=== PATIENT | female | born 1935 | race Caucasian/White ===

== ENCOUNTER → 2016-10-03 | Outpatient (CLI) | payer MEDICARE ==
[2016-10-03 16:19] LABS: Blood Urea Nitrogen 15 mg/dL (7-17); Non-African American GFR(MDRD) >60 (>60 ml/min/1.73 sqM)
--- NOTE | 2016-10-03 17:51 | CT ---
History shoulder pain. Comparison none. TECHNIQUE: Multiple axial sections were obtained from the top of the shoulder to the proximal humerus with no co ntrast. FINDINGS: There is extensive metal artifact from the prosthesis on the articular surface of the humeral head. T he visualized glenoid appears intact. I see no definite fracture. Prosthesis appears in anatomic posi tion. The AC joint is intact. There is narrowing of the subacromial joint space. Detail is limited by the metal artifact. I see no focal bone destruction. Scapula appears intact. The visualized left upp er ribs appear intact. CONCLUSION: Left shoulder prosthesis. No sign of loosening. There is subacromial joint space narrowing consistent with rotator cuff tear. No fracture. Limited exam due to metal artifact.
== END | disposition home or self-care (01) ==
LOC: RADCTMAIN 15:42
PROVIDERS: ATTEND Orthopaedic Surgery
DX: M19.012 Primary osteoarthritis, left shoulder (principal); Z96.612 Presence of left artificial shoulder joint
CPT/HCPCS: 82565; 84520; 36415; 73202; Q9967

== ENCOUNTER → 2016-11-14 | Outpatient (CLI) | payer MEDICARE ==
[2016-11-14 10:54] LABS: EKG EKG PERFORMED
[2016-11-14 11:17] LABS: CH 29.4; CHCM 32.3; HCT 42.7 % (34.0-46.0); HDW 2.39; HGB 13.9 gm/dL (11.4-16.0); MCH 29.8 pg (25.0-35.0); MCHC 32.6 g/dL (31.0-37.0); MCV 91.4 fL (80.0-100.0); Mean Platelet Volume 6.5; RBC 4.67 m/uL (3.80-5.40); RDW 13.4 % (11.5-15.5)
[2016-11-14 11:37] LABS: ALT 34 U/L (9-52); AST 20 U/L (14-36); Alkaline Phosphatase 71 U/L (38-126); Anion Gap 11 mmol/L; Blood Urea Nitrogen 20 mg/dL (7-17); Carbon Dioxide 29 mmol/L (22-30); Chloride 103 mmol/L (98-107); Glucose 110 mg/dL (74-99); Non-African American GFR(MDRD) >60 (>60 ml/min/1.73 sqM); Potassium 4.3 mmol/L (3.5-5.1); Sodium 143 mmol/L (137-145); Total Bilirubin 0.6 mg/dL (0.2-1.3); Total Protein 6.8 g/dL (6.3-8.2)
== END ==
LOC: LABPAT 10:44
PROVIDERS: ATTEND Nurse Practitioner
DX: Z01.810 Encounter for preprocedural cardiovascular examination (principal); Z01.812 Encounter for preprocedural laboratory examination
CPT/HCPCS: 80053; 85027; 93005

== ENCOUNTER 2016-11-21 10:44 | Day surgery (SDC) | payer MEDICARE ==
[2016-11-16 11:06] VITALS: BMI 39.9
[~2016-11-21 10:44] MED LIST: CLINDAMYCIN 900 MG in DEXTROSE 5% IN WATER 50 ML IVPB ONE; DEXAMETHASONE SOD PHOSPHATE 10 MG/ML 1 ML VIAL IV ONE; HYDROmorphone 1 MG/ML 1 ML SYRINGE IVP PRN; LACTATED RINGERS 1,000 ML IV SCH; MIDAZOLAM 2 MG/2 ML VIAL IV PRN; ONDANSETRON 4 MG/2 ML VIAL IVP ONE
[2016-11-21] MEDS ORDERED: LIDOCAINE 1% 20 ML VIAL (10MG/ML) FOR IV START INTRADERMA ONE (11:15)
[2016-11-21] MEDS ORDERED: LIDOCAINE 2%-EPI 1:100,000 20 ML VIAL ONE (12:49)
[2016-11-21] MEDS ORDERED: SUCCINYLCHOLINE CHLORIDE 100 MG/5 ML SYR IV ONE (12:49)
[2016-11-21] MEDS ORDERED: fentaNYL (PF) 50 MCG/ML 2 ML AMP ONE (12:49)
[2016-11-21] MEDS ORDERED: MIDAZOLAM 2 MG/2 ML VIAL ONE (12:49)
[2016-11-21] MEDS ORDERED: LIDOCAINE 1% INJ 10MG/ML (20 ML MDV) ONE (12:49)
[2016-11-21] MEDS ORDERED: PROPOFOL 10 MG/ML 20 ML VIAL IV ONE (12:49)
[2016-11-21] MEDS ORDERED: ROPIVACAINE 5 MG/ML 30 ML VIAL ONE (12:49)
[2016-11-21] MEDS ORDERED: PHENYLEPHRINE-0.9% NACL SYG 1 MG/10 ML SYRINGE ONE (12:49)
[2016-11-21] MEDS ORDERED: CLINDAMYCIN 600 MG in SODIUM CHLORIDE 0.9% 1,000 ML IRRIGATION ONE (13:13)
[2016-11-21] MEDS ORDERED: SENNOSIDES-DOCUSATE SODIUM 1 EACH TAB PO PRN (14:24)
[2016-11-21] MEDS ORDERED: TEMAZEPAM 15 MG CAP PO PRN (14:24)
[2016-11-21] MEDS ORDERED: HYDROmorphone 1 MG/ML 1 ML SYRINGE IVP PRN ×3 (14:24)
[2016-11-21] MEDS ORDERED: HYDROcodone/APAP 5-325MG 1 EACH TAB PO PRN ×2 (14:24)
[2016-11-21] MEDS ORDERED: hydrOXYzine PAMOATE 25 MG CAP PO PRN (14:24)
[2016-11-21] MEDS ORDERED: ONDANSETRON 4 MG/2 ML VIAL IVP PRN (14:24)
[2016-11-21] MEDS: LACTATED RINGERS 1,000 ML IV SCH ×2 (18:16→21:57)
[2016-11-21] MEDS: CLINDAMYCIN 900 MG in DEXTROSE 5% IN WATER 50 ML IVPB SCH ×2 (20:26)
[2016-11-21] MEDS ORDERED: OXYBUTYNIN 10 MG TAB.ER.24 PO SCH (21:15)
[2016-11-21] MEDS ORDERED: PSYLLIUM HUSK 100% 6 GM PACKET PO SCH (21:15)
[2016-11-21] MEDS ORDERED: METOPROLOL SUCCINATE (ER) 50 MG TAB.ER.24H PO SCH (21:15)
[2016-11-21] MEDS ORDERED: MONTELUKAST 10 MG TAB PO SCH (21:15)
[2016-11-21] MEDS: VERAPAMIL SR 240 MG TABLET.ER PO SCH (21:53)
[2016-11-22] MEDS: CLINDAMYCIN 900 MG in DEXTROSE 5% IN WATER 50 ML IVPB SCH ×2 (04:14)
[2016-11-22] MEDS ORDERED: DICYCLOMINE 10 MG CAP PO SCH (09:00)
[2016-11-22] MEDS ORDERED: LISINOPRIL 20 MG TAB PO SCH (09:00)
[2016-11-22] MEDS: LACTATED RINGERS 1,000 ML IV SCH (09:05)
[2016-11-22] MEDS: VERAPAMIL SR 240 MG TABLET.ER PO SCH (09:05)
--- NOTE | 2016-11-22 09:10 | P.DS ---
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 The patient presented to the orthopedic office for evaluation. After discussion and consideration patient elects to proceed with a rotator cuff repair. The patient is seen preoperatively by her primary care physician and cleared for surgery. Patient is admitted to observation at [facility] on 11/21/2016 for left shoulder rotator cuff repair with distal clavicle excision and acromioplasty. The procedures performed without complication or sequelae. The patient is doing well postoperatively. Labs and vital signs are stable on day of discharge. On day of discharge patient's shoulder incision is healing well. There is minimal erythema. There is no drainage noted at this time. There is minimal soft tissue swelling to the right upper extremity. Patient has full hand, wrist , and elbow motion without difficulty or pain. Neurovascular status to the left upper extremity is intact. Patient is discharged to home in good condition. Patient Condition at Discharge: Stable Plan - Discharge Summary New Discharge Prescriptions: Clindamycin HCl [Cleocin] 300 mg PO Q8H #15 cap HYDROcodone/APAP 5-325MG [[place] 5] 1 - 2 each PO Q4-6H PRN #60 tab PRN Reason: Pain Sennosides-Docusate Sodium [Senokot-S] 2 tab PO DAILY #30 tablet Discharge Medication List Fluticasone Propionate 1 spray EA NOSTRIL DAILY 10/23/14 [History] Metoprolol Succinate [Toprol XL] 50 mg PO HS 10/23/14 [History] Montelukast [Singulair] 10 mg PO HS 10/23/14 [History] Oxybutynin Chloride [Ditropan XL] 10 mg PO HS 10/23/14 [History] Verapamil HCl [Calan] 240 mg PO BID 02/12/15 [History] Ascorbic Acid [Vitamin C] 500 mg PO DAILY 10/28/14 [History] Multivitamin/Iron/Folic Acid [Centrum Complete Multivit Tab] 1 each PO DAILY [History] Albuterol Nebulized [Ventolin Nebulized] 1 applicate INHALATION BID PRN [History] Biotin 10,000 mcg PO DAILY 11/16/16 [History] Calcium/Magnesium/Zinc [Xaejxkp-Rxxdklihh-Hapl Tablet] 1 each PO DAILY 11/16/16 [History] Cholecalciferol [Vitamin D3] 1,000 unit PO DAILY 11/16/16 [History] Dicyclomine [Bentyl] 10 mg PO DAILY 11/16/16 [History] Lisinopril [Zestril] 20 mg PO DAILY 11/16/16 [History] Psyllium Husk [Metamucil] 1 tbsp PO HS 11/16/16 [History] HYDROcodone/APAP 5-325MG [[place] 5] 1 - 2 each PO Q4-6H PRN #60 tab 11/21/16 [Rx] Clindamycin HCl [Cleocin] 300 mg PO Q8H #15 cap 11/22/16 [Rx] Sennosides-Docusate Sodium [Senokot-S] 2 tab PO DAILY #30 tablet 11/22/16 [Rx] Follow up Appointment(s)/Referral(s): Miki Hannah DO [Doctor of Osteopathic Medicine] - 2 Weeks Activity/Diet/Wound Care/Special Instructions: Keep incision clean and dry Change dressing daily May shower in 3 days if no drainage from incision Keep arm sling/abductor pillow in place except when bathing Follow up with Dr. Hannah in 2 weeks. Call [facility] with any questions or concerns. [phone] Discharge Disposition: HOME SELF-CARE
--- NOTE | 2016-11-22 10:27 | CONS ---
DATE OF CONSULTATION: 11/21/2016 REASON FOR CONSULTATION: Medical management, requested by Dr. Hannah. CONSULTATION: This is a pleasant 81-year-old patient with chronic stable medical conditions include asthma, GERD, hypertension, irritable bowel syndrome, urinary incontinence. The patient has undergone a left shoulder today, had a nerve block, fingers are numb. Post procedure, no nausea, vomiting. Did tolerate the procedure. Propped up in bed. REVIEW OF SYSTEMS: CONSTITUTIONAL: None. HEENT: None. RESPIRATORY: None. CARDIOVASCULAR: None. GASTROINTESTINAL: None. GENITOURINARY: None. MUSCULOSKELETAL: Aches and pain in the joints. DERMATOLOGICAL: None. HEMATOLOGIC: None. LYMPHATIC: None. PSYCHIATRY: None. NEUROLOGICAL: None. PAST MEDICAL HISTORY: Asthma, GERD, hypertension, osteoarthritis, irritable bowel syndrome, peptic ulcer disease, urinary incontinence. PAST SURGICAL HISTORY: Appendectomy, breast surgery, cardiac cath, hysterectomy, humerus resurfacing left shoulder, bilateral breast biopsies, repair of nasal fracture. SOCIAL HISTORY: The patient is a . No smoking. No alcohol. FAMILY HISTORY: Breast cancer. HOME MEDICATIONS: 1. Verapamil 240 mg b.i.d. 2. Metamucil 1 tbsp p.o. at bedtime. 3. Ditropan XL at bedtime. 4. Centrum complete 1 tablet p.o. daily. 5. Singulair 10 mg at bedtime. 6. Toprol-XL 50 mg at bedtime. 7. Zestril 20 mg p.o. daily. 8. Fluticasone 1 spray each nostril daily. 9. Bentyl 10 mg p.o. daily. 10. Vitamin D3 daily. 11. Calcium with zinc. 12. Magnesium daily. 13. Biotene 10,000 mcg daily. 14. Vitamin C 500 mg p.o. daily. 15. Ventolin topical b.i.d. p.r.n. 16. [place] 5, 2 tablets every 4 hours p.r.n. ALLERGIES: ( ), SULFUR, CODEINE, EGG, CARBOPENEM, PENICILLIN. On examination, temperature 96.7, pulse 96, respirations 18, blood pressure 1309/72, pulse ox 97% on 2 L. GENERAL APPEARANCE: Well built, BMI of 39.9, sitting up, comfortable. HEENT: Pupils normal. External appearance of oral cavity normal. NECK: Short, thick, JVD unable to assess. Mass not palpable. RESPIRATORY: Effort normal. Decreased breath sounds. CARDIOVASCULAR: First and second sounds normal. No edema. ABDOMEN: Soft. Liver and spleen not palpable. LYMPHATIC: No lymph nodes palpable in the neck, axillae or groin. PSYCHIATRY: Alert, oriented x3. EXTREMITIES: Left arm in a sling. Decreased sensation in the fingers. NEUROLOGIC: Pupils equal. No facial asymmetry. The rest is as above. INVESTIGATIONS: No blood work today. ASSESSMENT: 1. Left shoulder, rotator cuff surgery with acromioplasty, excision of distal clavicle. 2. Obesity; body mass index 39.9. 3. Mild intermittent asthma. 4. Gastroesophageal reflux disease. 5. Essential hypertension. 6. Primary osteoarthritis of multiple joints. 7. Irritable bowel syndrome. 8. Chronic urinary stress incontinence. PLAN: Home medications are resumed. DVT prophylaxis. Venodyne boots in place. Care was discussed with the patient. Thank you, Dr. Hannah.
[2016-11-22 14:12] VITALS: BP 146/73; PULSE 58; RESP 16; TEMP 97.6
--- NOTE | 2016-11-23 06:56 | PN ---
DATE OF SERVICE: 11/22/2016 PRESENTING COMPLAINT: Left shoulder surgery. INTERVAL HISTORY: Patient is status post left shoulder surgery. I saw this patient earlier today sitting in bed, feeling better and numbness in the left arm is greatly improved, tolerating a diet. Some pain is present. No chest pain or short of breath. Review of systems done for constitutional, cardiovascular, GI, pulmonary; relevant findings as above. Current medications are reviewed. On examination, temperature 97.6, pulse 58, respirations 16, blood pressure 146/73, pulse ox 97% on room air. GENERAL APPEARANCE: Sitting up, comfortable. EYES: Pupils equal. Conjunctivae normal. NECK: JVD not raised. Mass not palpable. RESPIRATORY: Effort normal. LUNGS: Slightly decreased breath sounds. CARDIOVASCULAR: First and second sounds normal. No edema. ABDOMEN: Soft, nontender. Liver and spleen not palpable. The left arm in a sling. Sensation back in the left hand. INVESTIGATIONS: No blood work from today. ASSESSMENT: 1. Left shoulder rotator cuff surgery with acromioplasty, excision of distal clavicle. 2. Obesity, body mass index 39.9. 3. Mild intermittent asthma. 4. Gastroesophageal reflux disease. 5. Essential hypertension. 6. Primary osteoarthritis of multiple joints. 7. Irritable bowel syndrome. 8. Chronic urinary stress incontinence. PLAN: Patient is stable. Continue current medication and treatment plan.
--- NOTE | 2016-11-29 19:44 | OP ---
DATE OF SERVICE: 11/21/2016 SURGEON: RUBY RIVAS DO SALESPERSON [employer]SE[employer] APPLIANCES:Annia Byrd NP PREOPERATIVE DIAGNOSIS: Chronic left rotator cuff impingement with partial tear. POSTOPERATIVE DIAGNOSIS: Chronic left rotator cuff impingement with partial tear. OPERATION: Resection of distal left clavicle, decompression acromioplasty and left rotator cuff repair. ANESTHESIA: ESTIMATED BLOOD LOSS: SPECIMENS REMOVED: COMPLICATIONS: OPERATIVE FINDINGS: DESCRIPTION OF PROCEDURE: The patient was taken to the operative suite and placed in supine position. General inhalation anesthesia was performed by the Department of Anesthesiology. The patient was placed in a beach chair position, padded and secured. Betadine prep was carried out over the left shoulder. Sterile drapes applied in the usual manner. Minimally invasive anterolateral incision was developed over the acromion. Sharp dissection through to the subcutaneous tissue was performed. The superior acromion ligament is identified and dissected. The distal 1 cm clavicle was excised. Anterior deltoid was released from anterolateral border. Coracoacromial ligament was released. The anterolateral decompression acromioplasty was performed with the bone rasp. Direct visualization of the rotator cuff tear was developed between the supraspinatus and infraspinatus tendons were noted. The repair was done with #1 Ethibond suture in a running fashion. The area is irrigated copiously. The deltoid was then reapproximated into the acromion with #1 Ethibond suture. The deep fascia is approximated with #1 Vicryl suture in a running fashion. Subcutaneous tissue approximated with 2-0 Vicryl suture in an interrupted fashion. Skin was approximated with 3-0 Quill suture in a running subcuticular fashion. Dermabond is used in sealing the wound. Sterile dressing was applied and the patient was placed in abductor pillow splint and transferred to the recovery room in satisfactory postop condition. GROSS PATHOLOGY: There is evidence of chronic rotator cuff impingement with a tear in the supraspinatus and infraspinatus tendon. [facility]
== END 2016-11-22 14:26 | disposition home or self-care (01) ==
LOC: OR 10:44 → 3SUR 14:20 → OR 11-22 14:26
PROVIDERS: ATTEND Orthopaedic Surgery
DX: M75.42 Impingement syndrome of left shoulder (principal); M75.112 Incomplete rotator cuff tear or rupture of left shoulder, not specified as traumatic; I10 Essential (primary) hypertension; J45.909 Unspecified asthma, uncomplicated; M19.90 Unspecified osteoarthritis, unspecified site; K58.9 Irritable bowel syndrome, unspecified; K30 Functional dyspepsia; N39.498 Other specified urinary incontinence; Z79.51 Long term (current) use of inhaled steroids; Z79.899 Other long term (current) drug therapy; Z88.2 Allergy status to sulfonamides; Z88.7 Allergy status to serum and vaccine; Z88.5 Allergy status to narcotic agent; Z88.0 Allergy status to penicillin; Z91.012 Allergy to eggs
CPT/HCPCS: 64415; 23415; J2250; J1100; J2405; J2001; J3010; J2795; J2370; J0330; J2704

== ENCOUNTER → 2017-03-24 | Outpatient (CLI) | payer MEDICARE ==
[2017-03-24 11:20] LABS: Basophils % (A) 1 %; CH 28.7; CHCM 33.1; Eosinophils # (A) 0.3 k/uL (0-0.7); Eosinophils % (A) 4 %; HCT 41.6 % (34.0-46.0); HDW 2.75; HGB 14.2 gm/dL (11.4-16.0); Luc # (Auto) 0.09; Luc % (Auto) 2; Lymphocytes % (A) 16 %; MCH 29.7 pg (25.0-35.0); MCHC 34.1 g/dL (31.0-37.0); MCV 87.1 fL (80.0-100.0); Mean Platelet Volume 6.8; Monocytes # (A) 0.4 k/uL (0-1.0); Monocytes % (A) 6 %; Neutrophils # (A) 4.6 k/uL (1.3-7.7); Neutrophils % (A) 72 %; RBC 4.78 m/uL (3.80-5.40); WBC 6.4 k/uL (3.8-10.6)
[2017-03-24 11:49] LABS: ALT 37 U/L (9-52); AST 26 U/L (14-36); Alkaline Phosphatase 96 U/L (38-126); Anion Gap 12 mmol/L; Blood Urea Nitrogen 15 mg/dL (7-17); Calcium 9.7 mg/dL (8.4-10.2); Carbon Dioxide 25 mmol/L (22-30); Chloride 107 mmol/L (98-107); Glucose 109 mg/dL (74-99); Non-African American GFR(MDRD) >60 (>60 ml/min/1.73 sqM); Potassium 4.7 mmol/L (3.5-5.1); Sodium 144 mmol/L (137-145); Total Bilirubin 0.7 mg/dL (0.2-1.3); Total Protein 6.9 g/dL (6.3-8.2)
[2017-03-24 11:52] LABS: Appearance,Urine Cloudy (Clear); Bacteria,Urine Occasional /hpf; Bilirubin,Urine Negative (Negative); Glucose,Urine (UA) Negative (Negative); Ketones,Urine Negative (Negative); Leukocyte Esterase,Urine Large (Negative); Mucus,Urine Few /hpf; Nitrite,Urine Negative (Negative); Particle Count 6051; Protein,Urine Trace (Negative); Specific Gravity,Urine 1.018 (1.001-1.035); Squamous Epithelial Cell,Urine 2 /hpf (0-4); UA Billing (MACRO vs. MICRO) MICRO; Urobilinogen,Urine <2.0 mg/dL (<2.0); WBC,Urine 57 /hpf (0-5)
== END | disposition home or self-care (01) ==
LOC: LABPAT 10:48
PROVIDERS: ATTEND Orthopaedic Surgery
DX: Z01.812 Encounter for preprocedural laboratory examination (principal); Z79.01 Long term (current) use of anticoagulants
CPT/HCPCS: 80053; 81001; 85025; 85610; 85730; 87070

== ENCOUNTER 2017-04-04 05:52 | Inpatient (IN) | payer MEDICARE ==
[2017-03-29 10:38] VITALS: BMI 38.2
[~2017-04-04 05:52] MED LIST changes: -DEXAMETHASONE SOD PHOSPHATE 10 MG/ML 1 ML VIAL IV ONE; +FAMOTIDINE 20 MG/2 ML VIAL IV PRN; -HYDROmorphone 1 MG/ML 1 ML SYRINGE IVP PRN; -LACTATED RINGERS 1,000 ML IV SCH; +LIDOCAINE 1% 20 ML VIAL (10MG/ML) FOR IV START INTRADERMA PRN; -MIDAZOLAM 2 MG/2 ML VIAL IV PRN; -ONDANSETRON 4 MG/2 ML VIAL IVP ONE; +ONDANSETRON 4 MG/2 ML VIAL IVP PRN; +TRANEXAMIC ACID 1,000 MG in SODIUM CHLORIDE 0.9% 100 ML IVPB ONE
[2017-04-04] MEDS: LACTATED RINGERS 1,000 ML IV SCH (06:21)
[2017-04-04 06:27] LABS: Appearance,Urine Clear (Clear); Bilirubin,Urine Negative (Negative); Glucose,Urine (UA) Negative (Negative); Ketones,Urine Negative (Negative); Leukocyte Esterase,Urine Small (Negative); Mucus,Urine Few /hpf; Nitrite,Urine Negative (Negative); PH, Urine 6.5 (5.0-8.0); Particle Count 2021; Protein,Urine Negative (Negative); RBC,Urine <1 /hpf (0-5); Specific Gravity,Urine 1.008 (1.001-1.035); Squamous Epithelial Cell,Urine <1 /hpf (0-4); UA Billing (MACRO vs. MICRO) MICRO; Urobilinogen,Urine <2.0 mg/dL (<2.0); WBC,Urine 10 /hpf (0-5)
[2017-04-04] MEDS ORDERED: TRANEXAMIC ACID 1,000 MG/10 ML VIAL ONE (07:03)
[2017-04-04] MEDS ORDERED: ePHEDrine 50 MG/ML 1 ML AMP ONE (07:03)
[2017-04-04] MEDS ORDERED: PROPOFOL 10 MG/ML 20 ML VIAL IV ONE (07:03)
[2017-04-04] MEDS ORDERED: SODIUM CHLORIDE 0.9% 100 ML BAG ONE (07:03)
[2017-04-04] MEDS ORDERED: fentaNYL (PF) 50 MCG/ML 2 ML AMP ONE (07:03)
[2017-04-04] MEDS ORDERED: MIDAZOLAM 2 MG/2 ML VIAL ONE (07:03)
[2017-04-04] MEDS ORDERED: CLINDAMYCIN 1,800 MG in SODIUM CHLORIDE 0.9% IRRIGATIO 3,000 ML IRRIGATION ONE (07:39)
[2017-04-04] MEDS ORDERED: LACTATED RINGERS 1,000 ML IV ONE ×3 (08:16→10:00)
[2017-04-04] MEDS ORDERED: DIAZEPAM 5 MG TAB PO PRN ×2 (08:53)
[2017-04-04] MEDS ORDERED: MAGNESIUM HYDROXIDE 2,400 MG/10 ML CUP PO PRN (08:53)
[2017-04-04] MEDS ORDERED: NALOXONE 0.4 MG/ML 1 ML VIAL IV PRN (08:53)
[2017-04-04] MEDS ORDERED: NA PHOS,M-B/NA PHOS,DI-BA 133 ML ENEMA RECTAL PRN (08:53)
[2017-04-04] MEDS ORDERED: ONDANSETRON 4 MG/2 ML VIAL IVP PRN (08:53)
[2017-04-04] MEDS ORDERED: HYDROmorphone 1 MG/ML 1 ML SYRINGE IVP PRN ×3 (08:53)
[2017-04-04] MEDS ORDERED: BISACODYL 10 MG SUPP RECTAL PRN (08:53)
[2017-04-04] MEDS ORDERED: hydrOXYzine PAMOATE 25 MG CAP PO PRN (08:53)
--- NOTE | 2017-04-04 09:48 | XR ---
EXAMINATION TYPE: XR knee limited RT DATE OF EXAM: 04/04/2017 CLINICAL HISTORY: Postoperative evaluation Two views of the right knee are submitted. Identified are changes of total knee arthroplasty with femoral and tibial components appearing well seated. Postsurgical soft tissue changes are noted. Alignment is anatomic.
[2017-04-04] MEDS: HYDROmorphone 1 MG/ML 1 ML SYRINGE IVP PRN ×2 (10:15→10:21)
--- NOTE | 2017-04-04 14:22 | P.CONS ---
History of Present Illness - Reason for Consult Consult date: 04/04/17 Medical management - Chief Complaint Right knee osteoarthritis - History of Present Illness This is a 81-year-old female with past medical history noted below significant for severe osteoarthritis of the right knee who was admitted to the hospital for elective total right knee arthroplasty. Patient is postoperative day #0. She tolerated the procedure well. She is complaining that her pain is not well controlled. I was asked to see her for medical management. I noted that the patient was bradycardic with a heart rate around 54. She denies any dizziness or lightheadedness. She is using both metoprolol succinate and verapamil at home. She said that she's been on this regimen for several years. She denies any knowledge of having problems with bradycardia. Review of Systems Review of system: 14 points review of systems were obtained and were negative except to what were mentioned in the HPI. Past Medical History Past Medical History: Asthma, GERD/Reflux, Hypertension, Osteoarthritis (OA) Additional Past Medical History / Comment(s): hx ulcer, IBS, leakage of urine, cold sores since hysterectomy, currently being tx. for UTI History of Any Multi-Drug Resistant Organisms: None Reported Past Surgical History: Breast Surgery, Heart Catheterization, Hysterectomy, Orthopedic Surgery Additional Past Surgical History / Comment(s): 10/28/14 Humeral head resurfacing L shoulder. bilateral breast biopsies, repair of nasal fx. Past Anesthesia/Blood Transfusion Reactions: No Reported Reaction Past Psychological History: No Psychological Hx Reported Additional Psychological History / Comment(s): Pt lives with in her own home. Pt is independent. She can still drive a car just not lately due to L shoulder problem. has dementia- he takes care of himself for the most part but is very forgetful. Pt uses no devices and uses no outside agency. Smoking Status: Never smoker Past Alcohol Use History: None Reported Past Drug Use History: None Reported - Past Family History Mother Family Medical History: Cancer Additional Family Medical History / Comment(s): breast Father Family Medical History: Congestive Heart Failure (CHF), Diabetes Mellitus, Vascular Disorder Additional Family Medical History / Comment(s): Blood clots in his legs. PVD Medications and Allergies Home Medications Medication Instructions Recorded Confirmed Type Fluticasone Propionate 1 spray EA NOSTRIL DAILY 10/23/14 04/04/17 History Metoprolol Succinate [Toprol XL] 50 mg PO HS 10/23/14 04/04/17 History Montelukast [Singulair] 10 mg PO HS 10/23/14 04/04/17 History Oxybutynin Chloride [Ditropan XL] 10 mg PO HS 10/23/14 04/04/17 History Verapamil HCl [Calan] 240 mg PO BID 10/23/14 04/04/17 History Ascorbic Acid [Vitamin C] 500 mg PO DAILY 10/28/14 04/04/17 History Multivitamin/Iron/Folic Acid 1 tab PO DAILY 10/28/14 04/04/17 History [Centrum Complete Multivit Tab] Biotin 10,000 mcg PO DAILY 11/16/16 04/04/17 History Calcium/Magnesium/Zinc 1 tab PO DAILY 11/16/16 04/04/17 History [Bhbsufl-Dvlplaxkb-Sfhl Tablet] Cholecalciferol [Vitamin D3] 1,000 unit PO DAILY 11/16/16 04/04/17 History Dicyclomine [Bentyl] 10 mg PO DAILY 11/16/16 04/04/17 History Lisinopril [Zestril] 20 mg PO DAILY 11/16/16 04/04/17 History Levofloxacin [Levaquin] 500 mg PO DAILY 03/31/17 04/04/17 History Psyllium Husk (with Sugar) 1 tbsp PO HS 04/04/17 04/04/17 History [Metamucil Powder] Allergies Allergy/AdvReac Type Severity Reaction Status Date / Time Influenza Virus Vaccines Allergy arm Verified 04/04/17 11:26 swelling Sulfa (Sulfonamide Allergy Unknown Verified 04/04/17 11:26 Antibiotics) Childhood codeine AdvReac Confusion, Verified 04/04/17 11:26 "out of it" gabapentin [From Neurontin] AdvReac Confusion, Verified 04/04/17 11:26 "out of it" Penicillins AdvReac Swelling Verified 04/04/17 11:26 Physical Exam Vitals: Vital Signs Temp Pulse Resp BP Pulse Ox 04/04/17 10:24 54 L 16 149/68 92 L 04/04/17 10:09 54 L 16 170/65 92 L 04/04/17 09:54 53 L 16 129/60 95 04/04/17 09:39 54 L 16 121/67 92 L 04/04/17 09:24 54 L 16 120/60 92 L 04/04/17 09:09 55 L 16 126/56 93 L 04/04/17 08:53 97.2 F L 62 16 117/58 94 L 04/04/17 06:20 97.9 F 63 16 188/90 97 Intake and Output 04/03/17 04/04/17 04/04/17 22:59 06:59 14:59 Intake Total 100 2056 Output Total 275 Balance 100 1781 Intake: IV 100 2056 Output: Urine 225 Estimated Blood Loss 50 General: The patient is awake and alert, in no distress Eye: there is normal conjunctiva bilaterally. Neck: The neck is supple, there is no JVD. Cardiovascular: Normal S1-S2, no S3-S4, no murmurs. Respiratory: Lungs clear to auscultation bilaterally Gastrointestinal: Abdomen is soft, nontender Musculoskeletal: There is no pedal edema. Neurological:. Speech is normal. Skin: Skin is warm and dry Results Labs: Abnormal Lab Results - Last 24 Hours (Table) 04/04/17 Range/Units 06:08 Ur Leukocyte Esterase Small H (Negative) Urine WBC 10 H (0-5) /hpf Urine Mucus Few H (None) /hpf Assessment and Plan Plan: 1. Sinus bradycardia, most likely attributed to the combination use of metoprolol succinate and verapamil. I advised to put the patient on telemetry monitoring. Hold metoprolol for now. Continue verapamil. We will adjust regimen as needed. 2. Postoperative day #0 status post total right knee arthroplasty 3. DVT prophylaxis per orthopedic protocol 4. Essential hypertension: Blood pressure well-controlled 5. Physical debility, awaiting PT/OT evaluation Today, I reviewed her medication list. Lab work ordered for the morning. Continue current regimen otherwise. Continue telemetry monitoring. I would follow up on her closely. Thank you very much for the consultation.
[2017-04-04] MEDS: CLINDAMYCIN 900 MG in DEXTROSE 5% IN WATER 50 ML IVPB SCH ×4 (14:42→17:50)
[2017-04-04] MEDS: HYDROcodone/APAP 5-325MG 1 EACH TAB PO PRN ×2 (14:44→15:17)
[2017-04-04] MEDS: SODIUM CHLORIDE 0.9% 1,000 ML IV SCH (14:47)
[2017-04-04] MEDS ORDERED: WARFARIN 2.5 MG TAB PO ONE (18:00)
[2017-04-04] MEDS: VERAPAMIL SR 240 MG TABLET.ER PO SCH (21:21)
[2017-04-04] MEDS: OXYBUTYNIN 10 MG TAB.ER.24 PO SCH (21:21)
[2017-04-04] MEDS: MONTELUKAST 10 MG TAB PO SCH (21:21)
[2017-04-04] MEDS: SENNOSIDES-DOCUSATE SODIUM 1 EACH TAB PO SCH (21:23)
[2017-04-05] MEDS: SODIUM CHLORIDE 0.9% 1,000 ML IV SCH ×2 (02:03→09:20)
[2017-04-05] MEDS: HYDROcodone/APAP 5-325MG 1 EACH TAB PO PRN ×4 (03:35→22:03)
[2017-04-05 08:07] LABS: Basophils % (A) 0 %; CH 29.7; CHCM 33.6; Eosinophils % (A) 0 %; HCT 39.6 % (34.0-46.0); HDW 2.61; HGB 13.1 gm/dL (11.4-16.0); Luc # (Auto) 0.14; Luc % (Auto) 1; Lymphocytes # (A) 0.8 k/uL (1.0-4.8); Lymphocytes % (A) 8 %; MCH 29.4 pg (25.0-35.0); MCHC 33.2 g/dL (31.0-37.0); MCV 88.6 fL (80.0-100.0); Mean Platelet Volume 7.4; Monocytes # (A) 0.9 k/uL (0-1.0); Monocytes % (A) 8 %; Neutrophils # (A) 8.7 k/uL (1.3-7.7); Neutrophils % (A) 82 %; RBC 4.47 m/uL (3.80-5.40); RDW 13.8 % (11.5-15.5); WBC 10.6 k/uL (3.8-10.6); WBC (Perox) 10.23
[2017-04-05 08:13] LABS: INR 1.4 (<1.2); Prothrombin Time 13.5 sec (9.0-12.0)
[2017-04-05 08:19] LABS: ALT 31 U/L (9-52); AST 21 U/L (14-36); Alkaline Phosphatase 83 U/L (38-126); Anion Gap 8 mmol/L; Blood Urea Nitrogen 9 mg/dL (7-17); Calcium 8.8 mg/dL (8.4-10.2); Carbon Dioxide 27 mmol/L (22-30); Chloride 100 mmol/L (98-107); Glucose 116 mg/dL (74-99); Magnesium 1.9 mg/dL (1.6-2.3); Non-African American GFR(MDRD) >60 (>60 ml/min/1.73 sqM); Potassium 3.7 mmol/L (3.5-5.1); Sodium 135 mmol/L (137-145); Total Bilirubin 0.8 mg/dL (0.2-1.3)
--- NOTE | 2017-04-05 08:28 | P.PN ---
Subjective Principal diagnosis: Status post right total knee arthroplasty This is a 81-year-old female who is status post right total knee arthroplasty. This is postoperative day #1. Patient states her pain is worse today than yesterday. Patient states she has been up out of bed once yesterday and transferred to a chair. Patient states it hurts to bear weight on the right lower extremity. Patient denies any numbness, weakness, tingling. Objective - Vital Signs Vital signs: Vital Signs Temp 100.1 F H 04/05/17 02:18 Pulse 76 04/05/17 02:18 Resp 17 04/05/17 02:18 BP 168/71 04/05/17 02:18 Pulse Ox 93 L 04/05/17 02:18 Intake & Output 04/04/17 04/05/17 04/05/17 18:59 06:59 18:59 Intake Total 3057 400 Output Total 1025 100 Balance 2031 300 Intake: IV 2157 400 Clindamycin 900 mg In 100 400 Dextrose 5% in Water 50 ml @ 100 mls/hr IVPB Q6H [facility] Rx#:[id number] Oral 900 Output: Urine 975 100 Uretheral (Morris) 750 Estimated Blood Loss 50 Other: Voiding Method Indwelling Catheter Indwelling Catheter - Exam Vital signs are stable. An elevated temperature noted which is most likely reactive, will follow patient closely. Patient is in no acute distress and is alert and oriented 3. Calf is soft and nontender. Incision is clean, dry, and intact. Neurovascular status intact. Patient has full foot and ankle motion. - Labs CBC & Chem 7: 04/05/17 07:45 Labs: Abnormal Lab Results - Last 24 Hours (Table) 04/05/17 04/05/17 Range/Units 07:45 07:45 Neutrophils # 8.7 H (1.3-7.7) k/uL Lymphocytes # 0.8 L (1.0-4.8) k/uL PT 13.5 H (9.0-12.0) sec INR 1.4 H (<1.2) Assessment and Plan (1) S/P total knee arthroplasty Status: Acute (2) Primary osteoarthritis of right knee Status: Acute Plan: #1 Continue with routine postoperative care. #2 Continue anticoagulation. #3 Physical therapy and CPM today. #4 Appreciated input from medicine. #5 Anticipate discharge to rehab on Monday .
[2017-04-05] MEDS: VERAPAMIL SR 240 MG TABLET.ER PO SCH ×2 (08:41→21:33)
[2017-04-05] MEDS: LISINOPRIL 20 MG TAB PO SCH (08:42)
[2017-04-05] MEDS: DICYCLOMINE 10 MG CAP PO SCH (08:42)
[2017-04-05] MEDS: LACTATED RINGERS 1,000 ML IV SCH (09:19)
--- NOTE | 2017-04-05 12:26 | XR ---
EXAMINATION TYPE: XR chest 2V DATE OF EXAM: 04/05/2017 COMPARISON: 09/02/2013 HISTORY: Shortness of breath TECHNIQUE: Frontal and lateral views of the chest are obtained. FINDINGS: Scattered senescent parenchymal changes noted. Hyperinflation compatible with COPD. No evidence for infiltrate. No evidence for atelectasis. Heart size is stable. Mediastinal structures are stable and grossly unremarkable. No evidence for hilar prominence. Degenerative changes dorsal spine. IMPRESSION: 1. No evidence for acute pulmonary disease.
--- NOTE | 2017-04-05 15:58 | P.PN ---
Subjective Patient is doing well today. Heart rate in the 60s and 70s. No events overnight. Objective - Vital Signs Vital signs: Vital Signs Temp 99.4 F 04/05/17 07:00 Pulse 68 04/05/17 07:00 Resp 18 04/05/17 07:00 BP 159/74 04/05/17 07:00 Pulse Ox 96 04/05/17 07:00 Intake & Output 04/04/17 04/05/17 04/05/17 18:59 06:59 18:59 Intake Total 3057 400 Output Total 1025 2400 Balance 2031 -1999 Intake: IV 2157 400 Clindamycin 900 mg In 100 400 Dextrose 5% in Water 50 ml @ 100 mls/hr IVPB Q6H [facility] Rx#:[id number] Oral 900 Output: Urine 975 2400 Uretheral (Morris) 750 2300 Estimated Blood Loss 50 Other: Voiding Method Indwelling Catheter Indwelling Catheter Indwelling Catheter - Exam General: The patient is awake and alert, in no distress Eye: there is normal conjunctiva bilaterally. Neck: The neck is supple, there is no JVD. Cardiovascular: Normal S1-S2, no S3-S4, no murmurs. Respiratory: Lungs clear to auscultation bilaterally Gastrointestinal: Abdomen is soft, nontender Musculoskeletal: There is no pedal edema. Neurological:. Speech is normal. Skin: Skin is warm and dry - Labs CBC & Chem 7: 04/05/17 07:45 04/05/17 07:45 Labs: Abnormal Lab Results - Last 24 Hours (Table) 04/05/17 04/05/17 04/05/17 Range/Units 07:45 07:45 07:45 Neutrophils # 8.7 H (1.3-7.7) k/uL Lymphocytes # 0.8 L (1.0-4.8) k/uL PT 13.5 H (9.0-12.0) sec INR 1.4 H (<1.2) Sodium 135 L (137-145) mmol/L Glucose 116 H (74-99) mg/dL Total Protein 6.0 L (6.3-8.2) g/dL Assessment and Plan Plan: 1. Sinus bradycardia, improved significantly after stopping metoprolol. most likely attributed to the combination use of metoprolol succinate and verapamil. I advised to discontinue metoprolol permanently there is no clear indication for beta blockers in this patient 2. Postoperative day #1 status post total right knee arthroplasty 3. DVT prophylaxis on Coumadin per orthopedic protocol 4. Essential hypertension: Blood pressure well-controlled 5. Physical debility, awaiting PT/OT evaluation Today, I reviewed her medication list. Lab work ordered for the morning. Continue current regimen otherwise. I would follow up on her closely.
[2017-04-05 17:02] VITALS: RESP 16
[2017-04-05] MEDS ORDERED: WARFARIN 7.5 MG TAB PO ONE (18:00)
--- NOTE | 2017-04-05 20:58 | OP ---
DATE OF PROCEDURE: 04/04/2017 SURGEON: Dr Miki Hannah DO FIRE PROTECTION DESIGNER: Maritza Camacho PA-C PREOPERATIVE DIAGNOSIS: Degenerative joint disease of the right knee. POSTOPERATIVE DIAGNOSIS: Degenerative joint disease of the right knee. PROCEDURE PERFORMED: Right total knee replacement arthroplasty utilizing [employer] Person[employer] Complete System. PROCEDURE: Patient was taken to the operative suite and placed in supine position. Spinal anesthesia had been performed by the department of anesthesiology. Betadine prep was carried out over the right knee from mid thigh to mid calf. The sterile drapes were applied in the usual manner. A medial parapatellar incision was developed. Medial retinaculum was incised. Patella was everted and dislocated laterally and held in a leg treadwell. The intramedullary cutting guide and jig was utilized for appropriate cuts in preparation for a size 8 femoral component. Provisionary component was impacted in position. Alignment and stability are noted. Excellent alignment of bone component interface was noted. A tibial cutting guide was brought into position and appropriate wafer cut developed. The menisci, both medial and lateral were excised. A size 4 trabecular metal plate was selected and 10 mm spacer was utilized in preparing for appropriate peg hole positions. The area was irrigated copiously. The tibial tray was marked for position, held and appropriate peg holes were drilled in preparation for tibial tray. The patella was shaped with a shelving planer in preparing for size 29 mm patella. All the trial components remained in good alignment and position. Pulsavac antibiotic solution was utilized in preparation for the final component. The final size 8 trabecular placed in position in pre-drilled holes and impacted. Final size 8 component was impacted in position. The final patellar components of the knee selected and placed in pre-drilled peg holes and impacted. The final polyethylene insert was inserted. The knee was placed in flexion position and the pneumatic tourniquet was deflated. The knee was irrigated with Pulsavac antibiotic solution. Superficial bleeding was controlled with electrocautery. The medial retinaculum was approximated with #3 Vicryl suture in horizontal mattress fashion. The patellar retinaculum in running fashion. Vicryl 2-0 suture was used to approximate subcutaneous suture. A 3-0 Vicryl and Quill suture was utilized for subcuticular closure. Dermabond was utilized in sealing the wound. Betadine and sterile pressure dressing was applied. The patient was returned to the recovery room in satisfactory postoperative condition. GROSS PATHOLOGY: Degenerative joint disease of the right knee medial compartment. NASIR
[2017-04-05] MEDS: SENNOSIDES-DOCUSATE SODIUM 1 EACH TAB PO SCH (21:29)
[2017-04-05] MEDS: OXYBUTYNIN 10 MG TAB.ER.24 PO SCH (21:33)
[2017-04-05] MEDS: MONTELUKAST 10 MG TAB PO SCH (21:33)
[2017-04-06] MEDS: LACTATED RINGERS 1,000 ML IV SCH (03:21)
[2017-04-06] MEDS: HYDROcodone/APAP 5-325MG 1 EACH TAB PO PRN ×2 (04:15→14:25)
[2017-04-06 07:51] LABS: ALT 34 U/L (9-52); AST 25 U/L (14-36); Alkaline Phosphatase 69 U/L (38-126); Anion Gap 7 mmol/L; Blood Urea Nitrogen 15 mg/dL (7-17); Calcium 8.7 mg/dL (8.4-10.2); Carbon Dioxide 26 mmol/L (22-30); Chloride 101 mmol/L (98-107); Glucose 109 mg/dL (74-99); Magnesium 2.2 mg/dL (1.6-2.3); Non-African American GFR(MDRD) >60 (>60 ml/min/1.73 sqM); Potassium 4.3 mmol/L (3.5-5.1); Sodium 134 mmol/L (137-145); Total Bilirubin 0.6 mg/dL (0.2-1.3); Total Protein 5.6 g/dL (6.3-8.2)
[2017-04-06 08:06] VITALS: BP 118/60; PULSE 63; TEMP 98.4
[2017-04-06] MEDS: VERAPAMIL SR 240 MG TABLET.ER PO SCH (08:07)
[2017-04-06] MEDS: LISINOPRIL 20 MG TAB PO SCH (08:07)
[2017-04-06] MEDS: DICYCLOMINE 10 MG CAP PO SCH (08:07)
[2017-04-06] MEDS: SODIUM CHLORIDE 0.9% 1,000 ML IV SCH (08:09)
--- NOTE | 2017-04-06 08:30 | P.DS ---
Providers Date of admission: 04/04/17 05:52 Expected date of discharge: 04/06/17 Attending physician: Miki Hannah Consults: 04/04/17 08:53 Consult Physician Routine Consulting Provider: Magno Mills Consult Reason/Comments: medical management Do you want consulting provider notified?: Yes Primary care physician: Stated None - Discharge Diagnosis(es) (1) S/P total knee arthroplasty Current Visit: Yes Status: Acute (2) Primary osteoarthritis of right knee Current Visit: Yes Status: Acute Hospital Course: This is a 81-year-old female with known history of degenerative arthritis of the right knee. The patient presents for evaluation. After discussion and consideration patient elects to proceed with total knee arthroplasty. The patient is seen preoperatively by Dr. Hannah and cleared for surgery. Patient is admitted to [facility] on 04/04/2017 for total knee arthroplasty. The procedures performed without complication or sequelae. The patient is doing well postoperatively. Labs and vital signs are stable on day of discharge. On day of discharge patient's knee incision is healing well. There is minimal erythema. There is no drainage noted at this time. There is minimal soft tissue swelling to the knee. Patient has full foot and ankle motion without difficulty or pain. Neurovascular status to the right lower extremity is intact. Patient is discharged to rehab in good condition. Please see med rec for accurate list of home medications. Plan - Discharge Summary New Discharge Prescriptions: New Warfarin Sodium [Coumadin] 2.5 mg PO DIRECTED #7 tablet HYDROcodone/APAP 5-325MG [Roselle 5-325] 1 - 2 tab PO Q4-6H PRN #90 tab PRN Reason: Pain Sennosides-Docusate Sodium [Senokot-S] 1 tab PO BID #60 tablet Aspirin 325 mg PO BID #60 tab No Action Montelukast [Singulair] 10 mg PO HS Fluticasone Propionate 1 spray EA NOSTRIL DAILY Oxybutynin Chloride [Ditropan XL] 10 mg PO HS Metoprolol Succinate [Toprol XL] 50 mg PO HS Verapamil HCl [Calan] 240 mg PO BID Ascorbic Acid [Vitamin C] 500 mg PO DAILY Multivitamin/Iron/Folic Acid [Centrum Complete Multivit Tab] 1 tab PO DAILY Dicyclomine [Bentyl] 10 mg PO DAILY Lisinopril [Zestril] 20 mg PO DAILY Cholecalciferol [Vitamin D3] 1,000 unit PO DAILY Calcium/Magnesium/Zinc [Mvwdelr-Knxonxazb-Kdhq Tablet] 1 tab PO DAILY Biotin 10,000 mcg PO DAILY Levofloxacin [Levaquin] 500 mg PO DAILY Psyllium Husk (with Sugar) [Metamucil Powder] 1 tbsp PO HS Discharge Medication List Fluticasone Propionate 1 spray EA NOSTRIL DAILY 10/23/14 [History] Metoprolol Succinate [Toprol XL] 50 mg PO HS 10/23/14 [History] Montelukast [Singulair] 10 mg PO HS 10/23/14 [History] Oxybutynin Chloride [Ditropan XL] 10 mg PO HS 10/23/14 [History] Verapamil HCl [Calan] 240 mg PO BID 10/23/14 [History] Ascorbic Acid [Vitamin C] 500 mg PO DAILY 10/28/14 [History] Multivitamin/Iron/Folic Acid [Centrum Complete Multivit Tab] 1 tab PO DAILY [History] Biotin 10,000 mcg PO DAILY 11/16/16 [History] Calcium/Magnesium/Zinc [Lpfxhqm-Vmhrxzbue-Fgdt Tablet] 1 tab PO DAILY 11/16/16 [ History] Cholecalciferol [Vitamin D3] 1,000 unit PO DAILY 11/16/16 [History] Dicyclomine [Bentyl] 10 mg PO DAILY 11/16/16 [History] Lisinopril [Zestril] 20 mg PO DAILY 11/16/16 [History] Levofloxacin [Levaquin] 500 mg PO DAILY 03/31/17 [History] Psyllium Husk (with Sugar) [Metamucil Powder] 1 tbsp PO HS 04/04/17 [History] Aspirin 325 mg PO BID #60 tab 04/06/17 [Rx] HYDROcodone/APAP 5-325MG [Roselle 5-325] 1 - 2 tab PO Q4-6H PRN #90 tab 04/06/17 [ Rx] Sennosides-Docusate Sodium [Senokot-S] 1 tab PO BID #60 tablet 04/06/17 [Rx] Warfarin Sodium [Coumadin] 2.5 mg PO DIRECTED #7 tablet 04/06/17 [Rx] Follow up Appointment(s)/Referral(s): Miki Hannah DO [Doctor of Osteopathic Medicine] - 2 Weeks Ambulatory/Diagnostic Orders: Continuous Passive Motion (CPM) Machine [DME.AMB1] Time Frame: 2 Weeks, Location : Determined By Patient Activity/Diet/Wound Care/Special Instructions: Weightbearing as tolerated with a walker CPM 5-6h daily Daily dressing changes, keep incision clean and dry May shower if no drainage from incision [facility] with questions or concerns [phone] Discharge Disposition: TRANSFER TO SNF/ECF
[2017-04-06 11:06] LABS: Basophils % (A) 0 %; CH 28.8; CHCM 32.2; Eosinophils # (A) 0.1 k/uL (0-0.7); Eosinophils % (A) 1 %; HCT 34.8 % (34.0-46.0); HDW 2.63; HGB 11.6 gm/dL (11.4-16.0); Luc # (Auto) 0.14; Luc % (Auto) 1; Lymphocytes # (A) 0.8 k/uL (1.0-4.8); Lymphocytes % (A) 8 %; MCHC 33.3 g/dL (31.0-37.0); MCV 89.9 fL (80.0-100.0); Mean Platelet Volume 7.6; Monocytes # (A) 0.7 k/uL (0-1.0); Monocytes % (A) 7 %; Neutrophils # (A) 7.9 k/uL (1.3-7.7); Neutrophils % (A) 82 %; RBC 3.88 m/uL (3.80-5.40); RDW 13.2 % (11.5-15.5); WBC 9.7 k/uL (3.8-10.6); WBC (Perox) 10.09
--- NOTE | 2017-04-06 12:23 | P.PN ---
Subjective Patient is doing well today. No events overnight. Objective - Vital Signs Vital signs: Vital Signs Temp 98.4 F 04/06/17 07:00 Pulse 63 04/06/17 08:00 Resp 16 04/06/17 08:00 BP 118/60 04/06/17 07:00 Pulse Ox 91 L 04/06/17 07:00 Intake & Output 04/05/17 04/06/17 04/06/17 18:59 06:59 18:59 Intake Total 480 590 Output Total 350 Balance 130 590 Intake: Oral 480 590 Output: Urine 350 Other: Voiding Method Indwelling Catheter Bedside Commode # Voids 1 - Exam General: The patient is awake and alert, in no distress Eye: there is normal conjunctiva bilaterally. Neck: The neck is supple, there is no JVD. Cardiovascular: Normal S1-S2, no S3-S4, no murmurs. Respiratory: Lungs clear to auscultation bilaterally Gastrointestinal: Abdomen is soft, nontender Musculoskeletal: There is no pedal edema. Neurological:. Speech is normal. Skin: Skin is warm and dry - Labs CBC & Chem 7: 04/06/17 07:02 04/06/17 07:02 Labs: Abnormal Lab Results - Last 24 Hours (Table) 04/06/17 04/06/17 Range/Units 07:02 07:02 Neutrophils # 7.9 H (1.3-7.7) k/uL Lymphocytes # 0.8 L (1.0-4.8) k/uL Sodium 134 L (137-145) mmol/L Glucose 109 H (74-99) mg/dL Total Protein 5.6 L (6.3-8.2) g/dL Albumin 3.3 L (3.5-5.0) g/dL Assessment and Plan Plan: 1. Sinus bradycardia, improved significantly after stopping metoprolol. most likely attributed to the combination use of metoprolol succinate and verapamil. I advised to discontinue metoprolol permanently there is no clear indication for beta blockers in this patient 2. Postoperative day #2 status post total right knee arthroplasty 3. DVT prophylaxis on Coumadin per orthopedic protocol 4. Essential hypertension: Blood pressure well-controlled 5. Physical debility, awaiting PT/OT evaluation Today, I reviewed her medication list. Medically cleared for discharge
[2017-04-06 14:14] LABS: Prothrombin Time 19.7 sec (9.0-12.0)
== END 2017-04-06 15:21 | DRG 470 ==
LOC: 2ORMAIN 05:52 → 3SUR 10:55
PROVIDERS: ADMIT Orthopaedic Surgery; ATTEND Orthopaedic Surgery
PROC: 0SRC0JA Replacement of Right Knee Joint with Synthetic Substitute, Uncemented, Open Approach (ICD-10-PCS; principal; 2017-04-04 07:00)
DX: M17.11 Unilateral primary osteoarthritis, right knee (principal); R00.1 Bradycardia, unspecified; I10 Essential (primary) hypertension; J45.909 Unspecified asthma, uncomplicated; K21.9 Gastro-esophageal reflux disease without esophagitis; K58.9 Irritable bowel syndrome, unspecified; Z79.899 Other long term (current) drug therapy; Z82.49 Family history of ischemic heart disease and other diseases of the circulatory system; Z83.3 Family history of diabetes mellitus; Z88.2 Allergy status to sulfonamides; Z88.7 Allergy status to serum and vaccine; Z88.0 Allergy status to penicillin; T44.7X5A Adverse effect of beta-adrenoreceptor antagonists, initial encounter
CPT/HCPCS: 71020; 80053; 81001; 83735; 85025; 85610; 88300

== ENCOUNTER → 2019-05-29 | Outpatient (CLI) | payer MEDICARE ==
[~2019-05-29] MED LIST changes: -CLINDAMYCIN 900 MG in DEXTROSE 5% IN WATER 50 ML IVPB ONE; -FAMOTIDINE 20 MG/2 ML VIAL IV PRN; -LIDOCAINE 1% 20 ML VIAL (10MG/ML) FOR IV START INTRADERMA PRN; -ONDANSETRON 4 MG/2 ML VIAL IVP PRN; +SODIUM CHLORIDE 0.9% 500 ML 500 ML in EMPTY BAG 1 BAG IV PRN; -TRANEXAMIC ACID 1,000 MG in SODIUM CHLORIDE 0.9% 100 ML IVPB ONE; +ZOLEDRONIC ACID 5 MG in SODIUM CHLORIDE 0.9% 100 ML IV NR
[2019-05-29 10:12] VITALS: BP 143/79; PULSE 66; RESP 16; TEMP 97.6
== END | disposition home or self-care (01) ==
LOC: PROCWHC3 09:45
PROVIDERS: ATTEND Family Medicine
DX: M81.0 Age-related osteoporosis without current pathological fracture (principal); M81.8 Other osteoporosis without current pathological fracture
CPT/HCPCS: 96365; J3489

== ENCOUNTER → 2019-05-29 | Outpatient (CLI) | payer MEDICARE ==
[2019-05-29 11:13] LABS: African American GFR (CKD) >90 (>60 ml/min/1.73 sqM); Blood Urea Nitrogen 21 mg/dL (7-17)
--- NOTE | 2019-05-29 13:01 | CT ---
EXAMINATION TYPE: CT lumbar spine wo/w con DATE OF EXAM: 05/29/2019 COMPARISON: None HISTORY: Spinal stenosis CT DLP: 3009.2 mGycm Automated exposure control for dose reduction was used. CONTRAST: CT scan of the lumbar is performed without and with IV Contrast, patient injected with 100 mL of Isov ue 300. Unenhanced and enhanced CT of the lumbar spine was performed. Bone and soft tissue window settings a re submitted as well as coronal and sagittal reconstructions. There are 5 lumbar-type vertebra identified. There is levoconvex scoliosis centered at L3-L4 level. T here is multilevel moderate to severe disc space narrowing with multilevel vacuum disc phenomenon L1- L2 through L4-L5 levels. There is moderate disc space narrowing and vacuum disc phenomena L5-S1 level . There is moderate multilevel anterior and lateral spurring. There is endplate sclerosis right L3-L4 level. Slight grade 1 anterolisthesis L5 on S1. Review of axial images shows T12-L1 level are thought within normal limits. Axial images at L1-L2 level show posterior spur disc complex moderately effacing the anterior thecal sac and causing mild bilateral anterior inferior neural foraminal narrowing. Axial images at L2-L3 level show [id number] right greater than left facet degenerative changes. There is broad-based posterior disc protrusion mildly effacing the anterior thecal sac. There is mil d left and moderate right-sided neural foraminal narrowing. Axial images at the L3-L4 level show posterior spur disc complex with advanced right-sided facet dege nerative changes. There is effacement of the right anterolateral thecal sac. There is moderate right- sided neural foraminal narrowing. Left-sided neural foramen is patent. Axial images at the L4-L5 level show moderate to advanced facet degenerative changes bilaterally with ligamentum flavum hypertrophy. There is moderate posterior spur disc complex. There is effacement of the anterior and posterior lateral thecal sac seen best on axial image 50. There is severe left and moderate right-sided neural foraminal narrowing. Axial images at the L5-S1 level show advanced facet degenerative changes bilaterally. There is oil well service unit operator ior disc herniation. Spinal canal is mildly effaced. There is moderate left greater than right bilate ral neural foraminal narrowing. Visualized liver is hypodense suggesting diffuse fatty infiltration. No suspicious postcontrast enhan cement is seen. IMPRESSION: Levoconvex scoliosis with multilevel fairly severe degenerative changes as detailed above . Most prominent findings including spinal canal effacement noted at L4-L5 level.
== END | disposition home or self-care (01) ==
LOC: RADCTMAIN 10:30
PROVIDERS: ATTEND Family Medicine
DX: M47.816 Spondylosis without myelopathy or radiculopathy, lumbar region (principal); M41.86 Other forms of scoliosis, lumbar region
CPT/HCPCS: 82565; 84520; 72133; 36415; Q9967; 96365

== ENCOUNTER 2019-07-16 13:39 | Observation (INO) | payer MEDICARE ==
[2019-07-16] MEDS ORDERED: hydrALAZINE HCL 20 MG/ML 1 ML VIAL IVP STA ×2 (14:30→16:26)
[2019-07-16 14:51] LABS: Basophils # (A) 0.2 k/uL (0-0.2); Basophils % (A) 3 %; Eosinophils # (A) 0.2 k/uL (0-0.7); Eosinophils % (A) 3 %; HCT 41.4 % (34.0-46.0); HGB 13.8 gm/dL (11.4-16.0); Lymphocytes # (A) 0.8 k/uL (1.0-4.8); Lymphocytes % (A) 12 %; MCH 29.6 pg (25.0-35.0); MCHC 33.3 g/dL (31.0-37.0); MCV 88.8 fL (80.0-100.0); Mean Platelet Volume 6.4; Monocytes # (A) 0.4 k/uL (0-1.0); Monocytes % (A) 6 %; Neutrophils # (A) 4.9 k/uL (1.3-7.7); Neutrophils % (A) 75 %; Platelet Count 191 k/uL (150-450); RBC 4.67 m/uL (3.80-5.40); WBC 6.5 k/uL (3.8-10.6)
--- NOTE | 2019-07-16 14:57 | XR ---
EXAMINATION TYPE: XR chest 2V DATE OF EXAM: 07/16/2019 COMPARISON: 04/05/2017 HISTORY: Chest pain TECHNIQUE: Frontal and lateral views of the chest are obtained. FINDINGS: Left midlung platelike subsegmental atelectasis. There is no focal air space opacity, pleu ral effusion, or pneumothorax seen. Tortuosity of the descending thoracic aorta is exaggerated by pa tient rotation. The cardiac silhouette size is within normal limits. The osseous structures are int act. Left humeral arthroplasty is noted. Slight eventration of the right hemidiaphragm is seen on the prior. Mild degenerative changes of the spine. IMPRESSION: Platelike subsegmental atelectasis within the left midlung.
[2019-07-16 15:01] LABS: ALT 38 U/L (9-52); AST 29 U/L (14-36); African American GFR (CKD) >90 (>60 ml/min/1.73 sqM); Albumin 4.1 g/dL (3.5-5.0); Alkaline Phosphatase 77 U/L (38-126); Anion Gap 6 mmol/L; Blood Urea Nitrogen 14 mg/dL (7-17); Calcium 8.9 mg/dL (8.4-10.2); Carbon Dioxide 26 mmol/L (22-30); Chloride 109 mmol/L (98-107); Glucose 97 mg/dL (74-99); Magnesium 2.4 mg/dL (1.6-2.3); Non-African American GFR(CKD) 84 (>60 ml/min/1.73 sqM); Potassium 3.9 mmol/L (3.5-5.1); Sodium 141 mmol/L (137-145); Total Bilirubin 0.6 mg/dL (0.2-1.3); Total Protein 6.9 g/dL (6.3-8.2)
[2019-07-16 15:08] LABS: INR 0.9 (<1.2); Partial Thromboplastin Time 23.3 sec (22.0-30.0); Prothrombin Time 9.9 sec (9.0-12.0)
--- NOTE | 2019-07-16 15:24 | ED ---
General Adult HPI - General Chief complaint: Recheck/Abnormal Lab/Rx Stated complaint: hypertension Time Seen by Provider: 07/16/19 13:50 Source: patient, EMS, RN notes reviewed Mode of arrival: EMS Limitations: no limitations - History of Present Illness Initial comments: This is an 83-year-old female who presents emergency Department complaining of high blood pressure. Patient states she's been having high blood pressure issues for 2 weeks and she seen her primary medical care doctor but they told to come to the emergency department today because it was elevated. She states it was as high as 190/100 earlier today. Patient states when she woke up this morning at 3 AM she did have a headache however she currently does not have a headache. Patient denies any chest pain difficulty breathing shortness of breath. Patient denies any abdominal pain patient denies nausea vomiting diarrhea. Patient denies lightheadedness dizziness or near syncopal episode. Patient denies any recent fever chills or cough. Patient states currently she has no symptoms. - Related Data Home Medications Medication Instructions Recorded Confirmed Fluticasone Propionate 1 spray EA NOSTRIL DAILY 10/23/14 07/16/19 Montelukast [Singulair] 10 mg PO HS 10/23/14 07/16/19 Oxybutynin Chloride [Ditropan XL] 10 mg PO HS 10/23/14 07/16/19 Calcium/Magnesium/Zinc 1 tab PO DAILY 11/16/16 07/16/19 [Hhlieix-Ssowzadko-Zwjk Tablet] Cholecalciferol [Vitamin D3 (25 1,000 unit PO DAILY 11/16/16 07/16/19 Mcg = 1000 Iu)] Dicyclomine [Bentyl] 10 mg PO QID PRN 11/16/16 07/16/19 Lisinopril [Zestril] 20 mg PO DAILY 11/16/16 07/16/19 Psyllium Husk (with Sugar) 1 tbsp PO HS 04/04/17 07/16/19 [Metamucil Powder] Ascorbic Acid [Vitamin C] 1,000 mg PO DAILY 07/16/19 07/16/19 Biotin Forte 1 tab PO DAILY 07/16/19 07/16/19 Metoprolol Succinate (ER) [Toprol 50 mg PO DAILY 07/16/19 07/16/19 Xl] Multivit-Min/FA/Lycopen/Lutein 1 tab PO DAILY 07/16/19 07/16/19 [Centrum Silver Tablet] Verapamil HCl [Verapamil ER] 240 mg PO BID 07/16/19 07/16/19 Allergies Allergy/AdvReac Type Severity Reaction Status Date / Time Sulfa (Sulfonamide Allergy Unknown Verified 07/16/19 14:50 Antibiotics) Childhood codeine AdvReac Confusion, Verified 07/16/19 14:50 "out of it" gabapentin [From Neurontin] AdvReac Confusion, Verified 07/16/19 14:50 "out of it" Influenza Virus Vaccines AdvReac arm Verified 07/16/19 14:50 swelling Penicillins AdvReac Swelling Verified 07/16/19 14:50 Review of Systems ROS Statement: Those systems with pertinent positive or pertinent negative responses have been documented in the HPI. ROS Other: All systems not noted in ROS Statement are negative. Past Medical History Past Medical History: Hypertension Additional Past Medical History / Comment(s): hx ulcer, IBS, leakage of urine, cold sores since hysterectomy History of Any Multi-Drug Resistant Organisms: None Reported Past Surgical History: Breast Surgery, Heart Catheterization, Hysterectomy, Orthopedic Surgery Additional Past Surgical History / Comment(s): 10/28/14 Humeral head resurfacing L shoulder. bilateral breast biopsies, repair of nasal fx. Right knee repair, right rotator cuff Past Anesthesia/Blood Transfusion Reactions: No Reported Reaction Past Psychological History: No Psychological Hx Reported Smoking Status: Never smoker Past Alcohol Use History: None Reported Past Drug Use History: None Reported - Past Family History Mother Family Medical History: Cancer Additional Family Medical History / Comment(s): breast Father Family Medical History: Congestive Heart Failure (CHF), Diabetes Mellitus, Vascular Disorder Additional Family Medical History / Comment(s): Blood clots in his legs. PVD General Exam - General Exam Comments Initial Comments: GENERAL: Patient is well-developed and well-nourished. Patient is nontoxic and well- hydrated and is in no acute distress. ENT: Neck is soft and supple. No significant lymphadenopathy is noted. Oropharynx is clear. Moist mucous membranes. Neck has full range of motion without eliciting any pain. EYES: The sclera were anicteric and conjunctiva were pink and moist. Extraocular movements were intact and pupils were equal round and reactive to light. Eyelids were unremarkable. PULMONARY: Unlabored respirations. Good breath sounds bilaterally. No audible rales rhonchi or wheezing was noted. CARDIOVASCULAR: There is a regular rate and rhythm without any murmurs gallops or rubs. ABDOMEN: Soft and nontender with normal bowel sounds. SKIN: Skin is clear with no lesions or rashes and otherwise unremarkable. NEUROLOGIC: Patient is alert and oriented x3. Cranial nerves II through XII are grossly intact. Motor and sensory are also intact. Normal speech, volume and content. Symmetrical smile. MUSCULOSKELETAL: Normal extremities with adequate strength and full range of motion. No lower extremity swelling or edema. No calf tenderness. LYMPHATICS: No significant lymphadenopathy is noted PSYCHIATRIC: Normal psychiatric evaluation. Limitations: no limitations Course Vital Signs 07/16/19 07/16/19 07/16/19 13:47 13:50 13:56 Temperature 98.6 F Pulse Rate 63 60 Respiratory 22 16 Rate Blood Pressure 201/98 201/98 O2 Sat by Pulse 96 95 97 Oximetry 07/16/19 07/16/19 07/16/19 14:10 14:40 14:50 Temperature Pulse Rate 72 65 Respiratory 18 18 Rate Blood Pressure 174/86 170/89 170/89 O2 Sat by Pulse 96 95 Oximetry 07/16/19 07/16/19 07/16/19 15:10 15:35 15:40 Temperature Pulse Rate 72 78 60 Respiratory 27 H 16 20 Rate Blood Pressure 201/89 180/87 180/87 O2 Sat by Pulse 97 99 98 Oximetry 07/16/19 07/16/19 16:20 16:40 Temperature Pulse Rate 65 62 Respiratory 15 25 H Rate Blood Pressure 182/83 187/95 O2 Sat by Pulse 98 Oximetry Medical Decision Making - Medical Decision Making EKG shows normal sinus rhythm at 60 bpm MT interval 192 QRS is under 10 Q-T intervals 444 QTC is 444. Patient's EKG shows no ST segment elevation however some T-wave inversion and flattening in the precordial leads Chest x-ray shows no acute normalities. Patient received 5 hydralazine it did not affect the blood pressure in fact blood pressure 1 up a little. Patient received 10 mg of hydralazine blood pressure came down to about 150. Patient states this is been ongoing for 2 weeks and will go back up she doesn't feel comfortable going home. I spoke with Dr. Mills he agreed to admit the patientI consult cardiology. - Lab Data Result diagrams: 07/16/19 14:41 07/16/19 14:41 Lab Results 07/16/19 07/16/19 07/16/19 Range/Units 14:41 14:41 14:41 WBC 6.5 (3.8-10.6) k/uL RBC 4.67 (3.80-5.40) m/uL Hgb 13.8 (11.4-16.0) gm/dL Hct 41.4 (34.0-46.0) % MCV 88.8 (80.0-100.0) fL MCH 29.6 (25.0-35.0) pg MCHC 33.3 (31.0-37.0) g/dL RDW 13.0 (11.5-15.5) % Plt Count 191 (150-450) k/uL Neutrophils % 75 % Lymphocytes % 12 % Monocytes % 6 % Eosinophils % 3 % Basophils % 3 % Neutrophils # 4.9 (1.3-7.7) k/uL Lymphocytes # 0.8 L (1.0-4.8) k/uL Monocytes # 0.4 (0-1.0) k/uL Eosinophils # 0.2 (0-0.7) k/uL Basophils # 0.2 (0-0.2) k/uL PT 9.9 (9.0-12.0) sec INR 0.9 (<1.2) APTT 23.3 (22.0-30.0) sec Sodium 141 (137-145) mmol/L Potassium 3.9 (3.5-5.1) mmol/L Chloride 109 H (98-107) mmol/L Carbon Dioxide 26 (22-30) mmol/L Anion Gap 6 mmol/L BUN 14 (7-17) mg/dL Creatinine 0.63 (0.52-1.04) mg/dL Est GFR (CKD-EPI)AfAm >90 (>60 ml/min/1.73 sqM) Est GFR (CKD-EPI)NonAf 84 (>60 ml/min/1.73 sqM) Glucose 97 (74-99) mg/dL Calcium 8.9 (8.4-10.2) mg/dL Magnesium 2.4 H (1.6-2.3) mg/dL Total Bilirubin 0.6 (0.2-1.3) mg/dL AST 29 (14-36) U/L ALT 38 (9-52) U/L Alkaline Phosphatase 77 (38-126) U/L Troponin I (0.000-0.034) ng/mL Total Protein 6.9 (6.3-8.2) g/dL Albumin 4.1 (3.5-5.0) g/dL 07/16/19 Range/Units 14:41 WBC (3.8-10.6) k/uL RBC (3.80-5.40) m/uL Hgb (11.4-16.0) gm/dL Hct (34.0-46.0) % MCV (80.0-100.0) fL MCH (25.0-35.0) pg MCHC (31.0-37.0) g/dL RDW (11.5-15.5) % Plt Count (150-450) k/uL Neutrophils % % Lymphocytes % % Monocytes % % Eosinophils % % Basophils % % Neutrophils # (1.3-7.7) k/uL Lymphocytes # (1.0-4.8) k/uL Monocytes # (0-1.0) k/uL Eosinophils # (0-0.7) k/uL Basophils # (0-0.2) k/uL PT (9.0-12.0) sec INR (<1.2) APTT (22.0-30.0) sec Sodium (137-145) mmol/L Potassium (3.5-5.1) mmol/L Chloride (98-107) mmol/L Carbon Dioxide (22-30) mmol/L Anion Gap mmol/L BUN (7-17) mg/dL Creatinine (0.52-1.04) mg/dL Est GFR (CKD-EPI)AfAm (>60 ml/min/1.73 sqM) Est GFR (CKD-EPI)NonAf (>60 ml/min/1.73 sqM) Glucose (74-99) mg/dL Calcium (8.4-10.2) mg/dL Magnesium (1.6-2.3) mg/dL Total Bilirubin (0.2-1.3) mg/dL AST (14-36) U/L ALT (9-52) U/L Alkaline Phosphatase (38-126) U/L Troponin I <0.012 (0.000-0.034) ng/mL Total Protein (6.3-8.2) g/dL Albumin (3.5-5.0) g/dL Disposition Clinical Impression: Hypertensive urgency Disposition: ADMITTED IP TO THIS HOSP Referrals: Margaux Duque MD [Primary Care Provider] - 1-2 days Time of Disposition: 17:45
[2019-07-16] MEDS ORDERED: hydrALAZINE HCL 20 MG/ML 1 ML VIAL IVP PRN (18:11)
[2019-07-16 19:42] VITALS: RESP 18
[2019-07-16] MEDS ORDERED: DICYCLOMINE 10 MG CAP PO PRN (20:54)
[2019-07-16] MEDS ORDERED: MONTELUKAST 10 MG TAB PO SCH (21:00)
[2019-07-16] MEDS ORDERED: OXYBUTYNIN 10 MG TAB.ER.24 PO SCH (21:00)
[2019-07-16] MEDS ORDERED: PSYLLIUM HUSK 100% 6 GM PACKET PO SCH (21:00)
[2019-07-16] MEDS ORDERED: VERAPAMIL SR 240 MG TABLET.ER PO SCH (21:00)
[2019-07-17 06:34] LABS: Cholesterol 188 mg/dL (<200); HDL Cholesterol 62 mg/dL (40-60); LDL Cholesterol,Calculated 108 mg/dL (0-99); Triglycerides 90 mg/dL (<150)
[2019-07-17] MEDS ORDERED: MULTIVITAMINS, THERA 1 EACH TAB PO SCH (09:00)
[2019-07-17] MEDS ORDERED: CHOLECALCIFEROL 1,000 UNIT TAB PO SCH (09:00)
[2019-07-17] MEDS ORDERED: METOPROLOL SUCCINATE (ER) 50 MG TAB.ER.24H PO SCH (09:00)
[2019-07-17] MEDS ORDERED: ASPIRIN 325 MG TAB PO SCH (09:00)
[2019-07-17] MEDS ORDERED: FLUTICASONE 50MCG/SPRAY NASAL 16GM EA NOSTRIL SCH (09:00)
[2019-07-17] MEDS ORDERED: ASCORBIC ACID 500 MG TAB PO SCH (09:00)
[2019-07-17] MEDS ORDERED: NON FORMULARY DRUG (Calcium/Magnesium/Zinc [Calcium-Magnesium-Zinc Tablet] 1 TAB) PO SCH (09:00)
[2019-07-17] MEDS ORDERED: BIOTIN FORTE PO SCH (09:00)
[2019-07-17] MEDS ORDERED: amLODIPine 5 MG TAB PO SCH ×2 (09:00)
[2019-07-17] MEDS ORDERED: LISINOPRIL 20 MG TAB PO SCH (09:00)
--- NOTE | 2019-07-17 10:34 | P.CRDCN ---
History of Present Illness History of present illness: This is a pleasant 83-year-old female past medical history significant for hypertension. She denies prior history of diabetes mellitus, coronary artery disease or dyslipidemia. She follows in the office with Dr. Mendez. We have been asked to see her in consultation secondary to uncontrolled hypertension. She has been going to physical therapy secondary to back pain and her blood pressure has been elevated as high up as 180/100. She saw her PCP and her toprol was increased. However it has continued to be elevated at home for the last 2-weeks despite the increase. She has also been experiencing headaches and some mild dizziness.Blood pressures on arrival were 201/98 and 172/101. She was given IV hydralazine. She denies chest pain, shortness of breath, palpitations, nausea, vomiting or diaphoresis. She is seen and examined sitting up in bed in no acute distress. Currently she is maintained on lisinopril 20 mg daily, torpol 50 mg daily and verapamil 240 mg BID. She states previously in the past when she had her knee replaced in 2016 she had some bradycardia while under anesthesia and her toprol was discontinued at that time. EKG on arrival reveals sinus mechanism heart rate 60, left axis deviation and non-specific T-wave abnormalities. Chest xray reveals some atelectasis at the left mid-lung. Laboratory data reviewed, CBC unremarkable, sodium 141, potassium 3.9, creatinine 0.63, magnesium 2.4, cardiac enzymes negative x3, LDL 108, HDL 62, total cholesterol 188. She did undergo a heart catheterization in 2012 that revealed normal coronary arteries. At the time of my exam: CONSTITUTIONAL: Denies fever. Denies chills. EYES: Denies blurred vision. Denies vision changes. Denies eye pain. EARS, NOSE, MOUTH & THROAT: Denies headache. Denies sore throat. Denies ear pain. CARDIOVASCULAR: Denies chest pain. Denies shortness of breath. Denies orthopnea. Denies PND. Denies palpitations. RESPIRATORY: Denies cough. GASTROINTESTINAL: Denies abdominal pain. Denies diarrhea. Denies constipation. Denies nausea. Denies vomiting. MUSCULOSKELETAL: Denies myalgias. INTEGUMENTARY: Denies pruitis. Denies rash. NEUROLOGIC: Denies numbness. Denies tingling. Denies weakness. PSYCHIATRIC: Denies anxiety. Denies depression. ENDOCRINE: Denies fatigue. Denies weight change. Denies polydipsia. Denies polyurina. GENITOURINARY: Denies burning, hematuria or urgency with micturation. HEMATOLOGIC: Denies history of anemia. Denies bleeding. Blood pressure 116/73 heart rate 69 afebrile maintaining oxygen saturation on room air GENERAL: This is a 83-year-old female in no apparent distress at the time of my examination. Obese. HEENT: Head is atraumatic, normocephalic. Pupils are equal, round. Sclerae anicteric. Conjunctivae are clear. Mucous membranes of the mouth are moist. Neck is supple. There is no jugular venous distention. No carotid bruit is heard. LUNGS: Clear to auscultation no wheezes, rales or rhonchi. No chest wall tenderness is noted on palpation or with deep breathing. HEART: Regular rate and rhythm without murmurs, rubs or gallops. S1 and S2 heard. ABDOMEN: Soft, nontender. Bowel sounds are heard. No organomegaly noted. EXTREMITIES: No evidence of peripheral edema and no calf tenderness noted. VASCULAR: Radial and dorsalis pedis pulses palpated, no evidence of clubbing. NEUROLOGIC: Patient is awake, alert and oriented x3. ASSESSMENT Hypertension, uncontrolled Dyslipidemia PLAN Discontinue verapamil and initiate on amlodipine 5 mg BID to avoid bradycardia and provide optimal blood pressure control. Continue lisinopril 20 mg daily and toprol 50 mg daily. Initiate on atorvastatin 40 mg daily. Increase activity and ambulation in the halls. May be discharged later this afternoon if she remain stable on current regimen. Follow up with Dr. Mendez in 2 weeks, advised to bring a blood pressure diary to her appointment. Thank you kindly for this consultation. Nurse Practitioner note has been reviewed, I agree with a documented findings and plan of care. Patient was seen and examined. Past Medical History Past Medical History: Hypertension Additional Past Medical History / Comment(s): hx ulcer, IBS, leakage of urine, cold sores since hysterectomy; allergic to beef, banana, gluten, eggs, dairy History of Any Multi-Drug Resistant Organisms: None Reported Past Surgical History: Breast Surgery, Heart Catheterization, Hysterectomy, Orthopedic Surgery Additional Past Surgical History / Comment(s): 10/28/14 Humeral head resurfacing L shoulder. bilateral breast biopsies, repair of nasal fx. Right knee replacement, left rotator cuff Past Anesthesia/Blood Transfusion Reactions: No Reported Reaction Past Psychological History: No Psychological Hx Reported Additional Psychological History / Comment(s): Pt lives with in her own home. Pt is independent. She can still drive a car just not lately due to L shoulder problem. has dementia- he takes care of himself for the most part but is very forgetful. Pt uses no devices and uses no outside agency. Smoking Status: Never smoker Past Alcohol Use History: None Reported Past Drug Use History: None Reported - Past Family History Mother Family Medical History: Cancer Additional Family Medical History / Comment(s): breast Father Family Medical History: Congestive Heart Failure (CHF), Diabetes Mellitus, Vascular Disorder Additional Family Medical History / Comment(s): Blood clots in his legs. PVD Medications and Allergies Home Medications Medication Instructions Recorded Confirmed Type Fluticasone Propionate 1 spray EA NOSTRIL DAILY 10/23/14 07/16/19 History Montelukast [Singulair] 10 mg PO HS 10/23/14 07/16/19 History Oxybutynin Chloride [Ditropan XL] 10 mg PO HS 10/23/14 07/16/19 History Calcium/Magnesium/Zinc 1 tab PO DAILY 11/16/16 07/16/19 History [Buqzqxh-Qkkpjsvpy-Oktd Tablet] Cholecalciferol [Vitamin D3 (25 1,000 unit PO DAILY 11/16/16 07/16/19 History Mcg = 1000 Iu)] Dicyclomine [Bentyl] 10 mg PO QID PRN 11/16/16 07/16/19 History Lisinopril [Zestril] 20 mg PO DAILY 11/16/16 07/16/19 History Psyllium Husk (with Sugar) 1 tbsp PO HS 04/04/17 07/16/19 History [Metamucil Powder] Ascorbic Acid [Vitamin C] 1,000 mg PO DAILY 07/16/19 07/16/19 History Biotin Forte 1 tab PO DAILY 07/16/19 07/16/19 History Metoprolol Succinate (ER) [Toprol 50 mg PO DAILY 07/16/19 07/16/19 History Xl] Multivit-Min/FA/Lycopen/Lutein 1 tab PO DAILY 07/16/19 07/16/19 History [Centrum Silver Tablet] Verapamil HCl [Verapamil ER] 240 mg PO BID 07/16/19 07/16/19 History Allergies Allergy/AdvReac Type Severity Reaction Status Date / Time Sulfa (Sulfonamide Allergy Unknown Verified 07/16/19 14:50 Antibiotics) Childhood codeine AdvReac Confusion, Verified 07/16/19 14:50 "out of it" gabapentin [From Neurontin] AdvReac Confusion, Verified 07/16/19 14:50 "out of it" Influenza Virus Vaccines AdvReac arm Verified 07/16/19 14:50 swelling Penicillins AdvReac Swelling Verified 07/16/19 14:50 Physical Exam Vitals: Vital Signs Temp Pulse Pulse Resp BP BP Pulse Ox 07/17/19 07:38 98.5 F 69 18 116/73 96 07/17/19 04:00 98.2 F 63 18 150/68 95 07/17/19 00:00 98.3 F 69 18 170/63 93 L 07/16/19 20:00 98.2 F 63 18 172/101 94 L 07/16/19 19:41 65 18 168/76 97 07/16/19 16:40 62 25 H 187/95 07/16/19 16:20 65 15 182/83 98 07/16/19 15:40 60 20 180/87 98 07/16/19 15:35 78 16 180/87 99 07/16/19 15:10 72 27 H 201/89 97 07/16/19 14:50 170/89 07/16/19 14:40 65 18 170/89 95 07/16/19 14:10 72 18 174/86 96 07/16/19 13:56 98.6 F 60 16 201/98 97 07/16/19 13:50 63 22 201/98 95 07/16/19 13:47 96 Intake and Output 07/16/19 07/17/19 07/17/19 22:59 06:59 14:59 Other: Voiding Method Toilet # Voids 1 1 1 Results 07/16/19 14:41 07/16/19 14:41 Cardiac Enzymes 07/16/19 07/16/19 07/16/19 Range/Units 14:41 14:41 20:56 AST 29 (14-36) U/L Troponin I <0.012 <0.012 (0.000-0.034) ng/mL 07/16/19 Range/Units 23:41 AST (14-36) U/L Troponin I <0.012 (0.000-0.034) ng/mL Coagulation 07/16/19 Range/Units 14:41 PT 9.9 (9.0-12.0) sec APTT 23.3 (22.0-30.0) sec Lipids 07/17/19 Range/Units 05:46 Triglycerides 90 (<150) mg/dL Cholesterol 188 (<200) mg/dL HDL Cholesterol 62 H (40-60) mg/dL CBC 07/16/19 Range/Units 14:41 WBC 6.5 (3.8-10.6) k/uL RBC 4.67 (3.80-5.40) m/uL Hgb 13.8 (11.4-16.0) gm/dL Hct 41.4 (34.0-46.0) % Plt Count 191 (150-450) k/uL Comprehensive Metabolic Panel 07/16/19 Range/Units 14:41 Sodium 141 (137-145) mmol/L Potassium 3.9 (3.5-5.1) mmol/L Chloride 109 H (98-107) mmol/L Carbon Dioxide 26 (22-30) mmol/L BUN 14 (7-17) mg/dL Creatinine 0.63 (0.52-1.04) mg/dL Glucose 97 (74-99) mg/dL Calcium 8.9 (8.4-10.2) mg/dL AST 29 (14-36) U/L ALT 38 (9-52) U/L Alkaline Phosphatase 77 (38-126) U/L Total Protein 6.9 (6.3-8.2) g/dL Albumin 4.1 (3.5-5.0) g/dL Current Medications Generic Name Dose Route Start Last Admin Trade Name Freq PRN Reason Stop Dose Admin Amlodipine Besylate 5 mg 07/17/19 09:00 07/17/19 10:05 Norvasc PO 5 mg BID ELISHA Administration Ascorbic Acid 1,000 mg 07/17/19 09:00 07/17/19 10:05 Vitamin C PO 1,000 mg DAILY ELISHA Administration Cholecalciferol 1,000 unit 07/17/19 09:00 07/17/19 10:05 Vitamin D3 (25 Mcg = 1000 Iu) PO 1,000 unit DAILY ELISHA Administration Dicyclomine HCl 10 mg 07/16/19 20:54 Bentyl PO QID PRN GI Spasms Fluticasone Propionate 1 spray 07/17/19 09:00 07/17/19 10:04 Flonase Nasal Rosalie EA NOSTRIL 1 spray DAILY ELISHA Administration Lisinopril 20 mg 07/17/19 09:00 07/17/19 10:05 Zestril PO 20 mg DAILY ELISHA Administration Metoprolol Succinate 50 mg 07/17/19 09:00 07/17/19 10:05 Toprol Xl PO 50 mg DAILY ELISHA Administration Montelukast Sodium 10 mg 07/16/19 21:00 07/16/19 21:57 Singulair PO 10 mg HS ELISHA Administration Multivitamins 1 each 07/17/19 09:00 07/17/19 10:05 Theragran PO 1 each DAILY ELISHA Administration Oxybutynin Chloride 10 mg 07/16/19 21:00 07/16/19 21:57 Ditropan Xl PO 10 mg HS ELISHA Administration Psyllium Hydrophilic Mucilloid 6 gm 07/16/19 21:00 07/16/19 21:57 Metamucil PO Not Given HS ELISHA Intake and Output 07/16/19 07/17/19 07/17/19 22:59 06:59 14:59 Other: Voiding Method Toilet # Voids 1 1 1 07/16/19 14:41 07/16/19 14:41
[2019-07-17] MEDS ORDERED: ATORVASTATIN 40 MG TAB PO SCH (10:45)
--- NOTE | 2019-07-17 11:05 | P.HPIM ---
History of Present Illness H&P Date: 07/17/19 This is an 83-year-old female patient of Dr. fishman. Patient presented to the ER with complaints of elevated blood pressure. Patient reports that she's been having elevated blood pressures intimately over the past 2 weeks. Patient recently saw her PCP and metoprolol was increased. Patient also states she's been having headache and dizziness. Patient denies any chest pain. Pressure upon arrival 201/89. Patient does have past medical history of hypertension, ulcers, IBS, heart cath and ex-smoker. Cardiology services have been consulted. Chest x-ray completed showing platelike subsegmental atelectasis in the left midlung. EKG completed showing normal sinus rhythm left axis deviation voltage criteria for left ventricular hypertrophic. She was given IV hydralazine throughout the night. Troponin negative X 3. Cardiology following. Patient denies chest pain shortness breath. Patient denies nausea vomiting or diarrhea. Patient denies any urinary burning or frequency. Review of Systems please refer to HPI otherwise unremarkable Past Medical History Past Medical History: Hypertension Additional Past Medical History / Comment(s): hx ulcer, IBS, leakage of urine, cold sores since hysterectomy; allergic to beef, banana, gluten, eggs, dairy History of Any Multi-Drug Resistant Organisms: None Reported Past Surgical History: Breast Surgery, Heart Catheterization, Hysterectomy, Orthopedic Surgery Additional Past Surgical History / Comment(s): 10/28/14 Humeral head resurfacing L shoulder. bilateral breast biopsies, repair of nasal fx. Right knee replacement, left rotator cuff Past Anesthesia/Blood Transfusion Reactions: No Reported Reaction Past Psychological History: No Psychological Hx Reported Additional Psychological History / Comment(s): Pt lives with in her own home. Pt is independent. She can still drive a car just not lately due to L shoulder problem. has dementia- he takes care of himself for the most part but is very forgetful. Pt uses no devices and uses no outside agency. Smoking Status: Never smoker Past Alcohol Use History: None Reported Past Drug Use History: None Reported - Past Family History Mother Family Medical History: Cancer Additional Family Medical History / Comment(s): breast Father Family Medical History: Congestive Heart Failure (CHF), Diabetes Mellitus, Vascular Disorder Additional Family Medical History / Comment(s): Blood clots in his legs. PVD Medications and Allergies Home Medications Medication Instructions Recorded Confirmed Type Fluticasone Propionate 1 spray EA NOSTRIL DAILY 10/23/14 07/16/19 History Montelukast [Singulair] 10 mg PO HS 10/23/14 07/16/19 History Oxybutynin Chloride [Ditropan XL] 10 mg PO HS 10/23/14 07/16/19 History Calcium/Magnesium/Zinc 1 tab PO DAILY 11/16/16 07/16/19 History [Cyczfey-Hbyaekdsn-Wuvf Tablet] Cholecalciferol [Vitamin D3 (25 1,000 unit PO DAILY 11/16/16 07/16/19 History Mcg = 1000 Iu)] Dicyclomine [Bentyl] 10 mg PO QID PRN 11/16/16 07/16/19 History Lisinopril [Zestril] 20 mg PO DAILY 11/16/16 07/16/19 History Psyllium Husk (with Sugar) 1 tbsp PO HS 04/04/17 07/16/19 History [Metamucil Powder] Ascorbic Acid [Vitamin C] 1,000 mg PO DAILY 07/16/19 07/16/19 History Biotin Forte 1 tab PO DAILY 07/16/19 07/16/19 History Metoprolol Succinate (ER) [Toprol 50 mg PO DAILY 07/16/19 07/16/19 History Xl] Multivit-Min/FA/Lycopen/Lutein 1 tab PO DAILY 07/16/19 07/16/19 History [Centrum Silver Tablet] Verapamil HCl [Verapamil ER] 240 mg PO BID 07/16/19 07/16/19 History Allergies Allergy/AdvReac Type Severity Reaction Status Date / Time Sulfa (Sulfonamide Allergy Unknown Verified 07/16/19 14:50 Antibiotics) Childhood codeine AdvReac Confusion, Verified 07/16/19 14:50 "out of it" gabapentin [From Neurontin] AdvReac Confusion, Verified 07/16/19 14:50 "out of it" Influenza Virus Vaccines AdvReac arm Verified 07/16/19 14:50 swelling Penicillins AdvReac Swelling Verified 07/16/19 14:50 Physical Exam Vitals: Vital Signs Temp Pulse Pulse Resp BP BP Pulse Ox 07/17/19 07:38 98.5 F 69 18 116/73 96 07/17/19 04:00 98.2 F 63 18 150/68 95 07/17/19 00:00 98.3 F 69 18 170/63 93 L 07/16/19 20:00 98.2 F 63 18 172/101 94 L 07/16/19 19:41 65 18 168/76 97 07/16/19 16:40 62 25 H 187/95 07/16/19 16:20 65 15 182/83 98 07/16/19 15:40 60 20 180/87 98 07/16/19 15:35 78 16 180/87 99 07/16/19 15:10 72 27 H 201/89 97 07/16/19 14:50 170/89 07/16/19 14:40 65 18 170/89 95 07/16/19 14:10 72 18 174/86 96 07/16/19 13:56 98.6 F 60 16 201/98 97 07/16/19 13:50 63 22 201/98 95 07/16/19 13:47 96 Intake and Output 07/16/19 07/17/19 07/17/19 22:59 06:59 14:59 Other: Voiding Method Toilet # Voids 1 1 1 Head normocephalic Neck supple Lungs clear to auscultation bilaterally no wheezing or crackles Heart regular rate and rhythm S1-S2, no rub or gallop Abdomen is soft nontender nondistended positive bowel sounds no hepatosplenomegaly Extremities no edema Neuro alert and orientated to 3 Results CBC & Chem 7: 07/16/19 14:41 07/16/19 14:41 Labs: Abnormal Lab Results - Last 24 Hours (Table) 07/16/19 07/16/19 07/17/19 Range/Units 14:41 14:41 05:46 Lymphocytes # 0.8 L (1.0-4.8) k/uL Chloride 109 H (98-107) mmol/L Magnesium 2.4 H (1.6-2.3) mg/dL LDL Cholesterol, Calc 108 H (0-99) mg/dL HDL Cholesterol 62 H (40-60) mg/dL Thrombosis Risk Factor Assmnt - Choose All That Apply Each Factor Represents 1 point: Obesity (BMI >25) Each Risk Factor Represents 3 Points: Age 75 years or older Thrombosis Risk Factor Assessment Total Risk Factor Score: 4 Thrombosis Risk Factor Assessment Level: Moderate Risk Assessment and Plan Assessment: 1. Uncontrolled hypertension with hypertensive urgency. Blood pressure on arrival 201/98. Patient was given IV hydralazine throughout the night. Cardiology service added Norvasc and verapamil DC'd. Blood pressure has improved. Per cardiology blood pressure remains stable patient may be DC'd home later this afternoon to follow up with cardiology outpatient 2. History of IBS 3. History of essential hypertension. Patient does report that she tends to eat a diet high in salt. Patient educated on lowering salt intake to help blood pressure control 4. History of peptic ulcer disease Cardiology services following. If blood pressure remains stable patient may be DC'd later this afternoon Time with Patient: Greater than 30 (Greater than 60% of the total time spent in counseling and coordination of care. I performed an examination of the patient and discussed their management with the Nurse Practitioner. I have reviewed the Nurse Practitioner's notes and agree with the documented findings and plan of care)
[2019-07-17 11:55] VITALS: BP 141/85; PULSE 78; TEMP 98.2
--- NOTE | 2019-07-17 14:25 | P.DS ---
Providers Date of admission: 07/16/19 17:47 Expected date of discharge: 07/17/19 Attending physician: Magno Mills Consults: 07/16/19 17:47 Consult Physician Urgent Consulting Provider: [facility] Consult Reason/Comments: Uncontrolled hypertension Do you want consulting provider notified?: Yes Primary care physician: Margaux Fishman [facility] Course: Discharge diagnosis 1. Uncontrolled hypertension with hypertensive urgency. Blood pressure on arrival 201/98. Patient was given IV hydralazine throughout the night. Cardiology service added Norvasc and verapamil DC'd. Blood pressure has improved. Per cardiology blood pressure remains stable patient may be DC'd home later this afternoon to follow up with cardiology outpatient. Blood pressure has improved. Discussed case with cardiology and P patient may be DC'd home. Verapamil DC'd patient will be DC'd home on Norvasc. Patient advised to monitor blood pressure closely and follow-up outpatient with cardiology services for further management 2. History of IBS 3. History of essential hypertension. Patient does report that she tends to eat a diet high in salt. Patient educated on lowering salt intake to help blood pressure control 4. History of peptic ulcer disease Hospital course This is an 83-year-old female patient of Dr. fishman. Patient presented to the ER with complaints of elevated blood pressure. Patient reports that she's been having elevated blood pressures intimately over the past 2 weeks. Patient recently saw her PCP and metoprolol was increased. Patient also states she's been having headache and dizziness. Patient denies any chest pain. Pressure upon arrival 201/89. Patient does have past medical history of hypertension, ulcers, IBS, heart cath and ex-smoker. Cardiology services have been consulted. Chest x-ray completed showing platelike subsegmental atelectasis in the left midlung. EKG completed showing normal sinus rhythm left axis deviation voltage criteria for left ventricular hypertrophic. She was given IV hydralazine throughout the night. Troponin negative X 3. Cardiology following. Patient denies chest pain shortness breath. Patient denies nausea vomiting or diarrhea. Patient denies any urinary burning or frequency. Patient has been cleared for discharge from cardiology standpoint patient is feeling good and eager to go home. Blood pressure has improved. Patient will be DC'd home on Norvasc. Verapamil DC'd. Patient denies chest pain or shortness of breath denies nausea vomiting or diarrhea. Patient denies any urinary burning or frequency. Patient to follow-up closely with cardiology PCP for further management I performed an examination of the patient and discussed their management with the Nurse Practitioner. I have reviewed the Nurse Practitioner's notes and agree with the documented findings and plan of care Patient Condition at Discharge: Stable Plan - Discharge Summary New Discharge Prescriptions: New Atorvastatin [Lipitor] 40 mg PO DAILY 30 Days #30 tab amLODIPine [Norvasc] 5 mg PO BID 30 Days #30 tab Continue Montelukast [Singulair] 10 mg PO HS Fluticasone Propionate 1 spray EA NOSTRIL DAILY Oxybutynin Chloride [Ditropan XL] 10 mg PO HS Dicyclomine [Bentyl] 10 mg PO QID PRN PRN Reason: Spasms Lisinopril [Zestril] 20 mg PO DAILY Cholecalciferol [Vitamin D3 (25 Mcg = 1000 Iu)] 1,000 unit PO DAILY Calcium/Magnesium/Zinc [Udjgwna-Mhptkijon-Bjto Tablet] 1 tab PO DAILY Psyllium Husk (with Sugar) [Metamucil Powder] 1 tbsp PO HS Multivit-Min/FA/Lycopen/Lutein [Centrum Silver Tablet] 1 tab PO DAILY Ascorbic Acid [Vitamin C] 1,000 mg PO DAILY Metoprolol Succinate (ER) [Toprol XL] 50 mg PO DAILY Biotin Forte 1 tab PO DAILY Discontinued Verapamil HCl [Verapamil ER] 240 mg PO BID Discharge Medication List Fluticasone Propionate 1 spray EA NOSTRIL DAILY 10/23/14 [History] Montelukast [Singulair] 10 mg PO HS 10/23/14 [History] Oxybutynin Chloride [Ditropan XL] 10 mg PO HS 10/23/14 [History] Calcium/Magnesium/Zinc [Byuaevf-Bmzeocmff-Flvd Tablet] 1 tab PO DAILY 11/16/16 [History] Cholecalciferol [Vitamin D3 (25 Mcg = 1000 Iu)] 1,000 unit PO DAILY 11/16/16 [History] Dicyclomine [Bentyl] 10 mg PO QID PRN 11/16/16 [History] Lisinopril [Zestril] 20 mg PO DAILY 11/16/16 [History] Psyllium Husk (with Sugar) [Metamucil Powder] 1 tbsp PO HS 04/04/17 [History] Ascorbic Acid [Vitamin C] 1,000 mg PO DAILY 07/16/19 [History] Biotin Forte 1 tab PO DAILY 07/16/19 [History] Metoprolol Succinate (ER) [Toprol XL] 50 mg PO DAILY 07/16/19 [History] Multivit-Min/FA/Lycopen/Lutein [Centrum Silver Tablet] 1 tab PO DAILY 07/16/19 [History] Atorvastatin [Lipitor] 40 mg PO DAILY 30 Days #30 tab 07/17/19 [Rx] amLODIPine [Norvasc] 5 mg PO BID 30 Days #30 tab 07/17/19 [Rx] Follow up Appointment(s)/Referral(s): Colby Mendez MD [STAFF PHYSICIAN] - 07/19/19 9:15 am ([facility] will call with follow up appointment date and time ) Margaux Fishman MD [Primary Care Provider] - 1-2 days Activity/Diet/Wound Care/Special Instructions: Activity as tolerated Diet heart healthy low-salt Patient monitor blood pressure at home Discharge Disposition: HOME SELF-CARE
== END 2019-07-17 15:02 | disposition home or self-care (01) ==
LOC: EC 13:39 → 1SOBS 17:47
PROVIDERS: ADMIT Internal Medicine; ATTEND Internal Medicine
DX: I16.0 Hypertensive urgency (principal); J98.11 Atelectasis; I10 Essential (primary) hypertension; E78.5 Hyperlipidemia, unspecified; K58.9 Irritable bowel syndrome, unspecified; R32 Unspecified urinary incontinence; E66.9 Obesity, unspecified; Z68.34 Body mass index [BMI] 34.0-34.9, adult; Z79.899 Other long term (current) drug therapy; Z88.0 Allergy status to penicillin; Z88.2 Allergy status to sulfonamides; Z88.5 Allergy status to narcotic agent; Z88.7 Allergy status to serum and vaccine; Z88.8 Allergy status to other drugs, medicaments and biological substances; Z91.012 Allergy to eggs; Z91.011 Allergy to milk products; Z91.018 Allergy to other foods; Z90.710 Acquired absence of both cervix and uterus; Z96.651 Presence of right artificial knee joint; Z87.81 Personal history of (healed) traumatic fracture; Z87.891 Personal history of nicotine dependence; Z87.11 Personal history of peptic ulcer disease; Z82.49 Family history of ischemic heart disease and other diseases of the circulatory system; Z83.3 Family history of diabetes mellitus; Z80.3 Family history of malignant neoplasm of breast
CPT/HCPCS: 93005 ×2; 96376; 96374; 99285; 36415; 80061; 80053; 83735; 84484; 85025; 85610; 85730; 71046; G0378 ×2; J0360

== ENCOUNTER 2019-07-29 18:35 | Inpatient (IN) | payer MEDICARE ==
[2019-07-29] MEDS ORDERED: SODIUM CHLORIDE 0.9% 500 ML 500 ML IV STA (19:00)
--- NOTE | 2019-07-29 19:01 | ED ---
General Adult HPI - General Chief complaint: Neuro Symptoms/Deficit Stated complaint: HYPERTENSION Source: patient, RN notes reviewed, old records reviewed Mode of arrival: ambulatory Limitations: no limitations - History of Present Illness Initial comments: This is an 83-year-old female presents emergency Department stating that she has had some expressive aphasia over the last couple of days. Daughter states she talked her last night and she was having some issues but she didn't think much of it. Patient was last seen normal on Monday night. Patient states she has no numbness or weakness. Daughter agrees is no facial droop and there is no slurred speech but the patient has difficulty finding her words. Patient has had no recent fever chills. Patient denies any chest pain palpitations difficulty breathing shortness of breath. Patient denies any abdominal pain. - Related Data Home Medications Medication Instructions Recorded Confirmed Fluticasone Propionate 1 spray EA NOSTRIL DAILY 10/23/14 07/16/19 Montelukast [Singulair] 10 mg PO HS 10/23/14 07/16/19 Oxybutynin Chloride [Ditropan XL] 10 mg PO HS 10/23/14 07/16/19 Calcium/Magnesium/Zinc 1 tab PO DAILY 11/16/16 07/16/19 [Ejxvois-Uzclkdsgz-Ubpk Tablet] Cholecalciferol [Vitamin D3 (25 1,000 unit PO DAILY 11/16/16 07/16/19 Mcg = 1000 Iu)] Dicyclomine [Bentyl] 10 mg PO QID PRN 11/16/16 07/16/19 Lisinopril [Zestril] 20 mg PO DAILY 11/16/16 07/16/19 Psyllium Husk (with Sugar) 1 tbsp PO HS 04/04/17 07/16/19 [Metamucil Powder] Ascorbic Acid [Vitamin C] 1,000 mg PO DAILY 07/16/19 07/16/19 Biotin Forte 1 tab PO DAILY 07/16/19 07/16/19 Metoprolol Succinate (ER) [Toprol 50 mg PO DAILY 07/16/19 07/16/19 XL] Multivit-Min/FA/Lycopen/Lutein 1 tab PO DAILY 07/16/19 07/16/19 [Centrum Silver Tablet] Previous Rx's Medication Instructions Recorded Atorvastatin [Lipitor] 40 mg PO DAILY 30 Days #30 tab 07/17/19 amLODIPine [Norvasc] 5 mg PO BID 30 Days #30 tab 07/17/19 Allergies Allergy/AdvReac Type Severity Reaction Status Date / Time Sulfa (Sulfonamide Allergy Unknown Verified 07/16/19 14:50 Antibiotics) Childhood codeine AdvReac Confusion, Verified 07/16/19 14:50 "out of it" gabapentin [From Neurontin] AdvReac Confusion, Verified 07/16/19 14:50 "out of it" Influenza Virus Vaccines AdvReac arm Verified 07/16/19 14:50 swelling Penicillins AdvReac Swelling Verified 07/16/19 14:50 Review of Systems ROS Statement: Those systems with pertinent positive or pertinent negative responses have been documented in the HPI. ROS Other: All systems not noted in ROS Statement are negative. Past Medical History Past Medical History: COPD, Hypertension Additional Past Medical History / Comment(s): hx ulcer, IBS, leakage of urine, cold sores since hysterectomy; allergic to beef, banana, gluten, eggs, dairy History of Any Multi-Drug Resistant Organisms: None Reported Past Surgical History: Breast Surgery, Heart Catheterization, Hysterectomy, Orthopedic Surgery Additional Past Surgical History / Comment(s): 10/28/14 Humeral head resurfacing L shoulder. bilateral breast biopsies, repair of nasal fx. Right knee re placement, left rotator cuff Past Anesthesia/Blood Transfusion Reactions: No Reported Reaction Past Psychological History: No Psychological Hx Reported Smoking Status: Never smoker Past Alcohol Use History: None Reported Past Drug Use History: None Reported - Past Family History Mother Family Medical History: Cancer Additional Family Medical History / Comment(s): breast Father Family Medical History: Congestive Heart Failure (CHF), Diabetes Mellitus, Vascular Disorder Additional Family Medical History / Comment(s): Blood clots in his legs. PVD General Exam Limitations: no limitations Course Vital Signs 07/29/19 07/29/19 18:41 19:45 Temperature 97.3 F L 98.7 F Pulse Rate 60 66 Respiratory 18 18 Rate Blood Pressure 186/78 165/75 O2 Sat by Pulse 95 95 Oximetry Medical Decision Making - Medical Decision Making EKG shows normal sinus rhythm at 65 bpm ND interval 172 QRS is 114 QT interval 440 QTC is 457. Patient's EKG shows some inverted T waves in the precordial l tiffany V1 through V5 and V6 changes were seen on a previous EKG Chest x-ray shows no acute abnormalities. CT of the brain shows no acute normalities. Patient had an NIH of 1. I spoke with Dr. Mills he agreed to admit the patient admitted the patient wrote admitting orders. - Lab Data Result diagrams: 07/29/19 18:55 07/29/19 18:55 Lab Results 07/29/19 07/29/19 07/29/19 Range/Units 18:55 18:55 18:55 WBC 7.8 (3.8-10.6) k/uL RBC 5.11 (3.80-5.40) m/uL Hgb 15.2 (11.4-16.0) gm/dL Hct 46.0 (34.0-46.0) % MCV 89.9 (80.0-100.0) fL MCH 29.8 (25.0-35.0) pg MCHC 33.2 (31.0-37.0) g/dL RDW 12.9 (11.5-15.5) % Plt Count 249 (150-450) k/uL Neutrophils % 71 % Lymphocytes % 17 % Monocytes % 6 % Eosinophils % 3 % Basophils % 2 % Neutrophils # 5.5 (1.3-7.7) k/uL Lymphocytes # 1.3 (1.0-4.8) k/uL Monocytes # 0.5 (0-1.0) k/uL Eosinophils # 0.2 (0-0.7) k/uL Basophils # 0.2 (0-0.2) k/uL PT 10.0 (9.0-12.0) sec INR 0.9 (<1.2) APTT 23.5 (22.0-30.0) sec Sodium 144 (137-145) mmol/L Potassium 3.9 (3.5-5.1) mmol/L Chloride 105 (98-107) mmol/L Carbon Dioxide 29 (22-30) mmol/L Anion Gap 10 mmol/L BUN 20 H (7-17) mg/dL Creatinine 0.63 (0.52-1.04) mg/dL Est GFR (CKD-EPI)AfAm >90 (>60 ml/min/1.73 sqM) Est GFR (CKD-EPI)NonAf 84 (>60 ml/min/1.73 sqM) Glucose 112 H (74-99) mg/dL Calcium 9.7 (8.4-10.2) mg/dL Total Bilirubin 0.9 (0.2-1.3) mg/dL AST 31 (14-36) U/L ALT 29 (9-52) U/L Alkaline Phosphatase 86 (38-126) U/L Troponin I (0.000-0.034) ng/mL Total Protein 7.5 (6.3-8.2) g/dL Albumin 4.6 (3.5-5.0) g/dL 07/29/19 Range/Units 18:55 WBC (3.8-10.6) k/uL RBC (3.80-5.40) m/uL Hgb (11.4-16.0) gm/dL Hct (34.0-46.0) % MCV (80.0-100.0) fL MCH (25.0-35.0) pg MCHC (31.0-37.0) g/dL RDW (11.5-15.5) % Plt Count (150-450) k/uL Neutrophils % % Lymphocytes % % Monocytes % % Eosinophils % % Basophils % % Neutrophils # (1.3-7.7) k/uL Lymphocytes # (1.0-4.8) k/uL Monocytes # (0-1.0) k/uL Eosinophils # (0-0.7) k/uL Basophils # (0-0.2) k/uL PT (9.0-12.0) sec INR (<1.2) APTT (22.0-30.0) sec Sodium (137-145) mmol/L Potassium (3.5-5.1) mmol/L Chloride (98-107) mmol/L Carbon Dioxide (22-30) mmol/L Anion Gap mmol/L BUN (7-17) mg/dL Creatinine (0.52-1.04) mg/dL Est GFR (CKD-EPI)AfAm (>60 ml/min/1.73 sqM) Est GFR (CKD-EPI)NonAf (>60 ml/min/1.73 sqM) Glucose (74-99) mg/dL Calcium (8.4-10.2) mg/dL Total Bilirubin (0.2-1.3) mg/dL AST (14-36) U/L ALT (9-52) U/L Alkaline Phosphatase (38-126) U/L Troponin I <0.012 (0.000-0.034) ng/mL Total Protein (6.3-8.2) g/dL Albumin (3.5-5.0) g/dL Disposition Clinical Impression: Cerebrovascular accident (CVA) Disposition: ADMITTED IP TO THIS HOSP Referrals: Margaux Duque MD [Primary Care Provider] - 1-2 days Time of Disposition: 19:57
[2019-07-29 19:14] LABS: Basophils # (A) 0.2 k/uL (0-0.2); Basophils % (A) 2 %; Eosinophils # (A) 0.2 k/uL (0-0.7); Eosinophils % (A) 3 %; HGB 15.2 gm/dL (11.4-16.0); Lymphocytes # (A) 1.3 k/uL (1.0-4.8); Lymphocytes % (A) 17 %; MCH 29.8 pg (25.0-35.0); MCHC 33.2 g/dL (31.0-37.0); MCV 89.9 fL (80.0-100.0); Mean Platelet Volume 6.7; Monocytes # (A) 0.5 k/uL (0-1.0); Monocytes % (A) 6 %; Neutrophils # (A) 5.5 k/uL (1.3-7.7); Neutrophils % (A) 71 %; Platelet Count 249 k/uL (150-450); RBC 5.11 m/uL (3.80-5.40); RDW 12.9 % (11.5-15.5); WBC 7.8 k/uL (3.8-10.6)
[2019-07-29 19:23] LABS: ALT 29 U/L (9-52); AST 31 U/L (14-36); African American GFR (CKD) >90 (>60 ml/min/1.73 sqM); Albumin 4.6 g/dL (3.5-5.0); Alkaline Phosphatase 86 U/L (38-126); Anion Gap 10 mmol/L; Blood Urea Nitrogen 20 mg/dL (7-17); Calcium 9.7 mg/dL (8.4-10.2); Carbon Dioxide 29 mmol/L (22-30); Chloride 105 mmol/L (98-107); Glucose 112 mg/dL (74-99); Non-African American GFR(CKD) 84 (>60 ml/min/1.73 sqM); Potassium 3.9 mmol/L (3.5-5.1); Sodium 144 mmol/L (137-145); Total Bilirubin 0.9 mg/dL (0.2-1.3); Total Protein 7.5 g/dL (6.3-8.2)
--- NOTE | 2019-07-29 19:26 | CT ---
EXAMINATION TYPE: CT brain wo con DATE OF EXAM: 07/29/2019 COMPARISON: None HISTORY: Hypertension, left leg weakness. CT DLP: 1090.[address] of the brain was performed. The ventricles, basal cisterns and sulci overlying the cerebral convexities demonstrate mild enlargem ent. There is no evidence for intracranial hemorrhage or sulcal effacement. There is decreased attenuation about the periventricular white matter and deep white matter of both c erebral hemispheres, compatible with chronic small vessel ischemia. Differential diagnosis does inclu de demyelination. No mass effects are seen.No midline shift. 1.4 cm Calcified meningioma high left parietal region. Osseous calvarium is intact. If symptoms persist consider MRI. IMPRESSION: 1. Age related atrophic and chronic small vessel ischemic change without acute intracranial process s een at this time.
--- NOTE | 2019-07-29 19:27 | XR ---
EXAMINATION TYPE: XR chest 2V DATE OF EXAM: 07/29/2019 COMPARISON: 07/16/2019 HISTORY: Shortness of breath TECHNIQUE: Frontal and lateral views of the chest are obtained. FINDINGS: Scattered senescent parenchymal changes noted. Mild increased density right lower lobe may reflect developing infiltrate. Correlate clinically. Heart size is stable. Mediastinal structures are stable and grossly unremarkable. No evidence for hilar prominence. Degenerative changes dorsal spine. IMPRESSION: 1. Mild increased density right lower lobe may reflect developing infiltrate. Correlate clinically.
[2019-07-29 19:47] LABS: INR 0.9 (<1.2); Partial Thromboplastin Time 23.5 sec (22.0-30.0)
[2019-07-29] MEDS ORDERED: ASPIRIN 325 MG TAB PO STA (20:05)
[2019-07-29] MEDS ORDERED: DICYCLOMINE 10 MG CAP PO PRN (22:36)
[2019-07-29] MEDS: ATORVASTATIN 40 MG TAB PO SCH (22:51)
[2019-07-29] MEDS: amLODIPine 5 MG TAB PO SCH (22:51)
[2019-07-30 06:24] LABS: Cholesterol 119 mg/dL (<200); HDL Cholesterol 59 mg/dL (40-60); LDL Cholesterol,Calculated 46 mg/dL (0-99); Triglycerides 70 mg/dL (<150)
[2019-07-30] MEDS: METOPROLOL SUCCINATE (ER) 50 MG TAB.ER.24H PO SCH (08:36)
[2019-07-30] MEDS: ASCORBIC ACID 500 MG TAB PO SCH (08:36)
[2019-07-30] MEDS: CHOLECALCIFEROL 1,000 UNIT TAB PO SCH (08:36)
[2019-07-30] MEDS: FLUTICASONE 50MCG/SPRAY NASAL 16GM EA NOSTRIL SCH (08:36)
[2019-07-30] MEDS: amLODIPine 5 MG TAB PO SCH ×2 (08:36→21:40)
[2019-07-30] MEDS: LISINOPRIL 20 MG TAB PO SCH (08:36)
[2019-07-30] MEDS: ASPIRIN 325 MG TAB PO SCH (08:36)
[2019-07-30] MEDS: ATORVASTATIN 40 MG TAB PO SCH (08:36)
[2019-07-30] MEDS ORDERED: BIOTIN FORTE PO SCH (09:00)
[2019-07-30] MEDS ORDERED: NON FORMULARY DRUG (Calcium/Magnesium/Zinc [Calcium-Magnesium-Zinc Tablet] 1 TAB) PO SCH (09:00)
--- NOTE | 2019-07-30 09:20 | US ---
EXAMINATION TYPE: US carotid duplex BILAT DATE OF EXAM: 07/30/2019 COMPARISON: NONE CLINICAL HISTORY: CVA. Stroke, Memory loss EXAM MEASUREMENTS: RIGHT: Peak Systolic Velocity (PSV) cm/sec ----- Right CCA: 68.8 ----- Right ICA: 67.1 ----- Right ECA: 116.1 ICA/CCA ratio: 1.0 RIGHT: End Diastole cm/sec ----- Right CCA: 17.1 ----- Right ICA: 20.2 ----- Right ECA: 10.4 LEFT: Peak Systolic Velocity (PSV) cm/sec ----- Left CCA: 49.6 ----- Left ICA: 119.7 ----- Left ECA: 92.3 ICA/CCA ratio: 2.4 LEFT: End Diastole cm/sec ----- Left CCA: 11.5 ----- Left ICA: 27.3 ----- Left ECA: 10.0 VERTEBRALS (direction of flow): Right Vertebral: Antegrade Left Vertebral: Antegrade Rhythm: Normal Mild atherosclerotic changes bilaterally. Very tortuous Right CCA, Left ICA IMPRESSION: Mild degree of grayscale atheromatous plaquing with no sonographically evident hemodynam ically significant stenosis within either visualized carotid arterial system. Criteria for Assigning % of Stenosis / Diameter reduction (Estimation based on the indirect measurements of the internal carotid artery velocities (ICA PSV). 1. Normal (no stenosis)=ICA PSV < 125 cm/s: ratio < 2.0: ICA EDV<40 cm/s. 2. Less than 50% stenosis=ICA PSV < 125 cm/s: ratio < 2.0: ICA EDV<40 cm/s. 3. 50 to 69% stenosis=ICA PSV of 125 to 230 cm/s: ration 2.0 ? 4.0: ICA EDV 40-100 cm/s. 4. Greater than 70% stenosis to near occlusion= ICA PSV > 230 cm/s: ratio > 4.0: ICA EDV > 100 cm/s. 5. Near occlusion= ICA PSV velocities may be low or undetectable: variable ratio and ICA EDV. 6. Total occlusion=unable to detect flow.
[2019-07-30 09:26] LABS: Basophils # (A) 0.1 k/uL (0-0.2); Basophils % (A) 1 %; Eosinophils # (A) 0.2 k/uL (0-0.7); Eosinophils % (A) 3 %; HGB 13.1 gm/dL (11.4-16.0); Lymphocytes % (A) 17 %; MCHC 32.7 g/dL (31.0-37.0); MCV 91.7 fL (80.0-100.0); Mean Platelet Volume 7.3; Monocytes # (A) 0.3 k/uL (0-1.0); Monocytes % (A) 6 %; Neutrophils # (A) 4.3 k/uL (1.3-7.7); Neutrophils % (A) 72 %; Platelet Count 212 k/uL (150-450); RBC 4.36 m/uL (3.80-5.40); RDW 12.9 % (11.5-15.5)
[2019-07-30 09:38] LABS: ALT 31 U/L (9-52); AST 26 U/L (14-36); African American GFR (CKD) >90 (>60 ml/min/1.73 sqM); Albumin 3.8 g/dL (3.5-5.0); Alkaline Phosphatase 76 U/L (38-126); Anion Gap 7 mmol/L; Blood Urea Nitrogen 22 mg/dL (7-17); Calcium 8.8 mg/dL (8.4-10.2); Carbon Dioxide 30 mmol/L (22-30); Chloride 106 mmol/L (98-107); Glucose 126 mg/dL (74-99); Non-African American GFR(CKD) 84 (>60 ml/min/1.73 sqM); Potassium 3.7 mmol/L (3.5-5.1); Sodium 143 mmol/L (137-145); Total Bilirubin 0.9 mg/dL (0.2-1.3); Total Protein 6.4 g/dL (6.3-8.2)
--- NOTE | 2019-07-30 10:00 | P.HPIM ---
History of Present Illness H&P Date: 07/30/19 This is an 83-year-old female patient of Dr. Duque. Patient presented with expressive aphasia. Patient's ninvxiwx-si-oll at bedside. Per family member patient had trouble finding her words on Monday. Patient denies any other neurological symptoms. Patient denies falling. Patient denies weakness to extremities. Patient denies any slurred speech. No facial droop noted per family. Patient does have a past medical history of hypertension in which she was recently admitted and medications adjusted. Per patient's family member patient recently followed up with cardiology services outpatient with 2-D echo was completed and blood pressure was monitored. Additional medical history includes COPD, IBS, ulcers, hysterectomy and previous heart cath. Head CT completed showing age-related atrophic and chronic small vessel ischemic change without acute intracranial process seen at this time. Chest x-ray completed showing mild increased density right lower lobe may reflect developing infi ltrate correlate clinically. EKG completed showing normal sinus rhythm left axis deviation voltage criteria for left ventricular hypertrophy. At this time patient is resting comfortably in bed. Patient does appear to have trouble finding her words at times. No other neuro symptoms present. Neurology services have been consulted. Carotid Doppler has been ordered. Patient denies any recent illness. Patient denies chest pain or shortness of breath. Patient denies nausea vomiting or diarrhea. Patient denies any urinary burning or frequency. Review of Systems Please refer to HPI otherwise unremarkable Past Medical History Past Medical History: COPD, Hypertension Additional Past Medical History / Comment(s): hx ulcer, IBS, leakage of urine, cold sores since hysterectomy; allergic to beef, banana, gluten, eggs, dairy History of Any Multi-Drug Resistant Organisms: None Reported Past Surgical History: Breast Surgery, Heart Catheterization, Hysterectomy, Orthopedic Surgery Additional Past Surgical History / Comment(s): 10/28/14 Humeral head resurfacing L shoulder. bilateral breast biopsies, repair of nasal fx. Right knee replacement, left rotator cuff Past Anesthesia/Blood Transfusion Reactions: No Reported Reaction Past Psychological History: No Psychological Hx Reported Smoking Status: Never smoker Past Alcohol Use History: None Reported Past Drug Use History: None Reported - Past Family History Mother Family Medical History: Cancer Additional Family Medical History / Comment(s): breast Father Family Medical History: Congestive Heart Failure (CHF), Diabetes Mellitus, Vascular Disorder Additional Family Medical History / Comment(s): Blood clots in his legs. PVD Medications and Allergies Home Medications Medication Instructions Recorded Confirmed Type Fluticasone Propionate 1 spray EA NOSTRIL DAILY 10/23/14 07/29/19 History Montelukast [Singulair] 10 mg PO HS 10/23/14 07/29/19 History Oxybutynin Chloride [Ditropan XL] 10 mg PO HS 10/23/14 07/29/19 History Calcium/Magnesium/Zinc 1 tab PO DAILY 11/16/16 07/29/19 History [[place]ovnzaesr-Huhd Tablet] Cholecalciferol [Vitamin D3 (25 1,000 unit PO DAILY 11/16/16 07/29/19 History Mcg = 1000 Iu)] Dicyclomine [Bentyl] 10 mg PO QID PRN 11/16/16 07/29/19 History Lisinopril [Zestril] 20 mg PO DAILY 11/16/16 07/29/19 History Psyllium Husk (with Sugar) 1 tbsp PO HS 04/04/17 07/29/19 History [Metamucil Powder] Ascorbic Acid [Vitamin C] 1,000 mg PO DAILY 07/16/19 07/29/19 History Biotin Forte 1 tab PO DAILY 07/16/19 07/29/19 History Metoprolol Succinate (ER) [Toprol 50 mg PO DAILY 07/16/19 07/29/19 History XL] Multivit-Min/FA/Lycopen/Lutein 1 tab PO DAILY 07/16/19 07/29/19 History [Centrum Silver Tablet] Atorvastatin [Lipitor] 40 mg PO DAILY 30 Days #30 tab 07/17/19 07/29/19 Rx amLODIPine [Norvasc] 5 mg PO BID 30 Days #30 tab 07/17/19 07/29/19 Rx Allergies Allergy/AdvReac Type Severity Reaction Status Date / Time Sulfa (Sulfonamide Allergy Unknown Verified 07/29/19 20:17 Antibiotics) Childhood codeine AdvReac Confusion, Verified 07/29/19 20:17 "out of it" gabapentin [From Neurontin] AdvReac Confusion, Verified 07/29/19 20:17 "out of it" Influenza Virus Vaccines AdvReac arm Verified 07/29/19 20:17 swelling Penicillins AdvReac Swelling Verified 07/29/19 20:17 Physical Exam Vitals: Vital Signs Temp Pulse Pulse Resp BP BP Pulse Ox 07/30/19 08:00 97.7 F 95 18 136/63 95 07/30/19 04:00 97.9 F 97 18 138/83 96 07/30/19 00:00 98.1 F 62 17 144/64 97 07/29/19 21:29 97.6 F 66 18 165/100 100 07/29/19 20:26 97.6 F 66 18 162/85 100 07/29/19 19:45 98.7 F 66 18 165/75 95 07/29/19 19:15 64 18 158/64 95 07/29/19 18:41 97.3 F L 60 18 186/78 95 Intake and Output 07/29/19 07/30/19 07/30/19 22:59 06:59 14:59 Intake Total 500 240 Balance 500 240 Intake: Intake, IV Titration 500 Amount Sodium Chloride 0.9% 500 500 ml 500 ml @ 999 mls/hr IV .Q31M STA Rx#:[id number] Oral 240 Other: # Voids 1 Weight 98.43 kg Head normocephalic Neck supple Lungs clear to auscultation bilaterally no wheezing or crackles Heart regular rate and rhythm S1-S2, no rub or gallop Abdomen is soft nontender nondistended positive bowel sounds no hepatosplenomegaly Extremities no edema Neuro alert and orientated to 3. Delayed response difficulty finding words. No facial droop noted. Speech is clear. Strength 5/5 to all extremities. No numbness noted Results CBC & Chem 7: 07/30/19 05:44 07/30/19 05:44 Labs: Abnormal Lab Results - Last 24 Hours (Table) 07/29/19 07/30/19 Range/Units 18:55 05:44 BUN 20 H 22 H (7-17) mg/dL Glucose 112 H 126 H (74-99) mg/dL Thrombosis Risk Factor Assmnt - Choose All That Apply Any of the Below Risk Factors Present?: Yes Each Factor Represents 1 point: Abnormal pulmonary function (COPD), Obesity (BMI >25) Each Risk Factor Represents 3 Points: Age 75 years or older, Family history of DVT/PE Each Risk Factor Represents 5 Points: Stroke (< 1 month) Thrombosis Risk Factor Assessment Total Risk Factor Score: 13 Thrombosis Risk Factor Assessment Level: High Risk Assessment and Plan Assessment: 1. Excessive aphasia secondary to possible CVA. Head CT completed showing age- related atrophic and chronic small vessel ischemic change without acute intracranial process seen at this time. 8 EKG completed showing normal sinus rhythm left axis deviation. 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 Neurology services have been consulted. 2. Essential hypertension. patient was recently admitted and blood pressure medications were adjusted. Patient has followed up with cardiology services in the past week and 2-D echo was completed. Current blood pressure 136/63. Home medications resumed. 3. History of IBS. Maintained on Bentyl 4. History of peptic ulcer disease 5. Hyperlipidemia. Maintained on statin DVT prophylaxis heparin. GI prophylaxis Pepcid Time with Patient: Greater than 30 (Greater than 60% of the total time spent in counseling and coordination of care. I performed an examination of the patient and discussed their management with the Nurse Practitioner. I have reviewed the Nurse Practitioner's notes and agree with the documented findings and plan of care)
--- NOTE | 2019-07-30 12:18 | ECHOF ---
Referral Reason:CVA MEASUREMENTS -------- HEIGHT: 154.9 cm WEIGHT: 98.4 kg BP: 138/83 RVIDd: 3.0 cm (< 3.3) IVSd: 1.2 cm (0.6 - 1.1) LVIDd: 3.6 cm (3.9 - 5.3) LVPWd: 1.3 cm (0.6 - 1.1) IVSs: 1.7 cm LVIDs: 2.6 cm LVPWs: 1.7 cm LA Diam: 3.0 cm (2.7 - 3.8) LAESV Index (A-L): 18.28 ml/m Ao Diam: 3.2 cm (2.0 - 3.7) AV Cusp: 1.9 cm (1.5 - 2.6) MV EXCURSION: 20.043 mm (> 18.000) MV EF SLOPE: 150 mm/s (70 - 150) EPSS: 0.3 cm MV E Matthew: 0.97 m/s MV DecT: 181 ms MV A Matthew: 1.21 m/s MV E/A Ratio: 0.80 RAP: 5.00 mmHg RVSP: 37.58 mmHg TAPSE: 21.52 mm FINDINGS -------- Resting tachycardia (HR>100bpm). This was a technically adequate study. The left ventricular size is normal. There is mild concentric left ventricular hypertrophy. Overa ll left ventricular systolic function is normal with, an EF between 60 - 65 %. The right ventricle is normal in size. Normal LA size by volume 22+/-6 ml/m2. The right atrium is normal in size. Aneurysmal Interatrial septum. There is mild aortic valve sclerosis. The mitral valve is normal. Mild tricuspid regurgitation present. There is mild pulmonary hypertension. The right ventricular systolic pressure, as measured by Doppler, is 37.58mmHg. The pulmonic valve was not well visualized. The aortic root size is normal. Normal inferior vena cava with normal inspiratory collapse consistent with estimated right atrial pre ssure of 5 mmHg. There is no pericardial effusion. CONCLUSIONS -------- 1. Resting tachycardia (HR>100bpm). 2. This was a technically adequate study. 3. The left ventricular size is normal. 4. There is mild concentric left ventricular hypertrophy. 5. Overall left ventricular systolic function is normal with, an EF between 60 - 65 %. 6. The right ventricle is normal in size. 7. Normal LA size by volume 22+/-6 ml/m2. 8. The right atrium is normal in size. 9. Aneurysmal Interatrial septum. 10. There is mild aortic valve sclerosis. 11. The mitral valve is normal. 12. Mild tricuspid regurgitation present. 13. There is mild pulmonary hypertension. 14. The right ventricular systolic pressure, as measured by Doppler, is 37.58mmHg. 15. The pulmonic valve was not well visualized. 16. The aortic root size is normal. 17. Normal inferior vena cava with normal inspiratory collapse consistent with estimated right atrial pressure of 5 mmHg. 18. There is no pericardial effusion. SODA WORKER: Chayito Alonzo RDCS
[2019-07-30] MEDS ORDERED: LORazepam 2 MG/ML INJ IV STA (15:37)
[2019-07-30] MEDS: CLOPIDOGREL 75 MG TAB PO SCH (15:55)
--- NOTE | 2019-07-30 17:19 | MR ---
EXAMINATION TYPE: MR angio head wo con DATE OF EXAM: 07/30/2019 COMPARISON: None HISTORY: CVA, Rule out intra cranial stenosis, left leg weakness TECHNIQUE: Time of flight images focusing on the [place] were performed without contrast. FINDINGS: There is arterial flow in the distal internal carotid arteries. There is arterial flow in b oth distal vertebral arteries. There is arterial flow in the vertebrobasilar artery system. There is arterial flow in the anterior middle and posterior cerebral arteries. There is no mass effect. There is no evidence of aneurysm or neovascularity. There is a short segment of luminal narrowing at L5 lee vian fissure branch of the right middle cerebral artery. IMPRESSION: There is some narrowing of the distal branch of the right middle cerebral artery. Stenosis is less th an 50% and probably not hemodynamic stenosis.
--- NOTE | 2019-07-30 17:33 | MR ---
EXAMINATION TYPE: MR brain wo con DATE OF EXAM: 07/30/2019 COMPARISON: None HISTORY: CVA, Rule out intra cranial stenosis, left leg weakness Standard multiplanar, multisequence MRI departmental protocol Multiplanar, multisequence images of the brain were acquired. Diffusion weighted imaging was performe d. FINDINGS: There is some cerebral cortical atrophy. There is no mass effect nor midline shift. There i s no sign of intracranial hemorrhage. Diffusion images show some nodular areas of increased signal in the thalamus that measures 2 x 2 cm. On the T2 and FLAIR images there is 9 mm area of increased sign al in the celia on the right side. I see no evidence of a cortical infarct. There is extensive coalesc ent increased signal on the FLAIR images in the periventricular white matter. There are numerous foci that measure up to 1.3 cm. IMPRESSION: There is evidence of an acute infarct of the left thalamus. Old infarct or demyelinating disease of the right side of the celia. Diffuse white matter signal changes around the ventricles could relate to demyelinating disease or ch ronic small vessel ischemia.
--- NOTE | 2019-07-30 17:35 | P.CNNES ---
History of Present Illness Consult date: 07/30/19 Requesting physician: Alvaro Jimenez Reason for Consult: CVA History of Present Illness: Patient is a 83-year-old female, who was brought to the hospital yesterday at 6:35 PM after her daughter saw her with altered mental status at around 5 PM. Patient's daughter states that she was with her mom on Monday morning 2 days ago and patient was "off a little". Yesterday when she talked to her at 5 PM, patient was "not acting like herself" and was not able to express her words. Different words would come out. There was no slurring of words, facial droop, or focal weakness noticed. Patient was brought to the hospital, where she had computed tomography scan of the head which revealed age-related atrophic and chronic small vessel ischemic changes without acute intracranial process. Although on my review, there is some hypodensity in the left basal ganglia noted. Patient was not a candidate for TPA, as there was no clear-cut time of onset of symptoms. Chest x-ray showed mild increased density right lower lobe may reflect developing infiltrate. EKG showed normal sinus rhythm, left axis deviation. Patient had a carotid Doppler performed today, which revealed mild degree of grayscale atheromatous plaquing with no sonographically evident hemodynamically significant stenosis within either visualize carotid arterial system. Very tortuous right CCA, left ICA. Patient had a 2-D echo, which revealed EF 60-65%. Normal left atrial size. Aneurysmal interatrial septum. There is mild aortic valve sclerosis. Patient has history of hypertension, but has got worse a month ago. Patient denies diabetes, never smoked tobacco. She does take aspirin 81 mg every day. Patient was admitted to the hospital 2 weeks ago after she was noted to have very high blood pressure of 217/107. 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 Patient usually is very talkative, and walks normally. She has been more withdrawn, still not acting like herself. Patient's total cholesterol is 119, LDL 46, HDL 59, triglycerides 70. Patient's last hemoglobin A1c was 6.1 on 02/18/2019. Her CBC and CMP is normal. Review of Systems Patient denies headache, diplopia, loss of vision. Denies any numbness tingling focal weakness. Patient was able to walk to the bathroom with some assistance. Denies chest pain, shortness of breath, wheezing. Past Medical History Past Medical History: COPD, Hypertension Additional Past Medical History / Comment(s): hx ulcer, IBS, leakage of urine, cold sores since hysterectomy; allergic to beef, banana, gluten, eggs, dairy History of Any Multi-Drug Resistant Organisms: None Reported Past Surgical History: Breast Surgery, Heart Catheterization, Hysterectomy, Orthopedic Surgery Additional Past Surgical History / Comment(s): 10/28/14 Humeral head resurfacing L shoulder. bilateral breast biopsies, repair of nasal fx. Right knee replacement, left rotator cuff Past Anesthesia/Blood Transfusion Reactions: No Reported Reaction Past Psychological History: No Psychological Hx Reported Smoking Status: Never smoker Past Alcohol Use History: None Reported Past Drug Use History: None Reported - Past Family History Mother Family Medical History: Cancer Additional Family Medical History / Comment(s): breast Father Family Medical History: Congestive Heart Failure (CHF), Diabetes Mellitus, Vascular Disorder Additional Family Medical History / Comment(s): Blood clots in his legs. PVD Medications and Allergies Home Medications Medication Instructions Recorded Confirmed Type Fluticasone Propionate 1 spray EA NOSTRIL DAILY 10/23/14 07/29/19 History Montelukast [Singulair] 10 mg PO HS 10/23/14 07/29/19 History Oxybutynin Chloride [Ditropan XL] 10 mg PO HS 10/23/14 07/29/19 History Calcium/Magnesium/Zinc 1 tab PO DAILY 11/16/16 07/29/19 History [Rdfmasw-Idmpoakqm-Axcp Tablet] Cholecalciferol [Vitamin D3 (25 1,000 unit PO DAILY 11/16/16 07/29/19 History Mcg = 1000 Iu)] Dicyclomine [Bentyl] 10 mg PO QID PRN 11/16/16 07/29/19 History Lisinopril [Zestril] 20 mg PO DAILY 11/16/16 07/29/19 History Psyllium Husk (with Sugar) 1 tbsp PO HS 04/04/17 07/29/19 History [Metamucil Powder] Ascorbic Acid [Vitamin C] 1,000 mg PO DAILY 07/16/19 07/29/19 History Biotin Forte 1 tab PO DAILY 07/16/19 07/29/19 History Metoprolol Succinate (ER) [Toprol 50 mg PO DAILY 07/16/19 07/29/19 History XL] Multivit-Min/FA/Lycopen/Lutein 1 tab PO DAILY 07/16/19 07/29/19 History [Centrum Silver Tablet] Atorvastatin [Lipitor] 40 mg PO DAILY 30 Days #30 tab 07/17/19 07/29/19 Rx amLODIPine [Norvasc] 5 mg PO BID 30 Days #30 tab 07/17/19 07/29/19 Rx Allergies Allergy/AdvReac Type Severity Reaction Status Date / Time Sulfa (Sulfonamide Allergy Unknown Verified 07/29/19 20:17 Antibiotics) Childhood codeine AdvReac Confusion, Verified 07/29/19 20:17 "out of it" gabapentin [From Neurontin] AdvReac Confusion, Verified 07/29/19 20:17 "out of it" Influenza Virus Vaccines AdvReac arm Verified 07/29/19 20:17 swelling Penicillins AdvReac Swelling Verified 07/29/19 20:17 Physical Examination - Vital Signs Vital Signs: Vital Signs Temp Pulse Pulse Resp BP BP Pulse Ox 07/30/19 12:00 97 F L 62 18 132/58 93 L 07/30/19 08:00 97.7 F 74 18 136/63 95 07/30/19 04:00 97.9 F 97 18 138/83 96 07/30/19 00:00 98.1 F 62 17 144/64 97 07/29/19 21:29 97.6 F 66 18 165/100 100 07/29/19 20:26 97.6 F 66 18 162/85 100 07/29/19 19:45 98.7 F 66 18 165/75 95 07/29/19 19:15 64 18 158/64 95 07/29/19 18:41 97.3 F L 60 18 186/78 95 Intake and Output 07/29/19 07/30/19 07/30/19 22:59 06:59 14:59 Intake Total 500 480 Balance 500 480 Intake: Intake, IV Titration 500 Amount Sodium Chloride 0.9% 500 500 ml 500 ml @ 999 mls/hr IV .Q31M STA Rx#:[id number] Oral 480 Other: # Voids 1 1 Weight 98.43 kg On examination patient is an elderly female, sitting comfortably in her recliner. Patient is alert and awake, appears somewhat quiet. Her speech is clear with no dysarthria. She does have some word finding difficulty. Patient was able to name objects presented like knuckles, button, ear, although she was not able to tell the "lobe". Patient's comprehension is intact. On cranial examination pupils are round and reactive to light, visual almaguer are full on confrontation. Extraocular muscles are intact. The patient has right facial asymmetry. Tongue protrudes the midline. On muscle strength testing patient has mild right pronation, no drift. The strength is normal in the arms and legs. Reflexes are 2+ and plantar is possible upgoing versus withdrawal bilaterally. Sensory touch is equal. No neglect. No ataxia for gvryij-vo-sbik testing. Tone and bulk of muscles normal. Results - Laboratory Findings CBC and BMP: 07/30/19 05:44 07/30/19 05:44 Abnormal Lab Findings: Abnormal Labs 07/29/19 07/30/19 18:55 05:44 BUN 20 H 22 H Glucose 112 H 126 H Assessment and Plan Assessment: * 83-year-old female, with recent history of uncontrolled hypertension, admitted with focal neurological symptoms, that started perhaps 2 days ago, but has got worse since yesterday. Her examination revealed some expressive dysphasia, and right facial asymmetry. Patient possibly has CVA related to small vessel disease. Rule out large vessel occlusion. * Hypertension Plan: * Patient has probable acute stroke. We will check stat MRI of the brain to confirm stroke and MRA of the head to rule out large vessel occlusion or stenosis. * Patient was taking aspirin 81 mg at home. We will add Plavix 75 mg for further stroke prevention. * PT OT and speech therapy. * Discussed with patient's family in detail.
[2019-07-30] MEDS: HEPARIN SODIUM,PORCINE 5,000 UNIT/ML 1 ML VIAL SQ SCH (21:39)
[2019-07-30] MEDS: MONTELUKAST 10 MG TAB PO SCH (21:40)
[2019-07-31 06:18] LABS: Basophils % (A) 0 %; Eosinophils # (A) 0.2 k/uL (0-0.7); Eosinophils % (A) 3 %; HGB 13.1 gm/dL (11.4-16.0); Lymphocytes # (A) 1.2 k/uL (1.0-4.8); Lymphocytes % (A) 19 %; MCH 30.4 pg (25.0-35.0); MCHC 33.5 g/dL (31.0-37.0); MCV 90.7 fL (80.0-100.0); Monocytes # (A) 0.4 k/uL (0-1.0); Monocytes % (A) 6 %; Neutrophils # (A) 4.7 k/uL (1.3-7.7); Neutrophils % (A) 70 %; Platelet Count 204 k/uL (150-450); RDW 12.7 % (11.5-15.5); WBC 6.6 k/uL (3.8-10.6)
[2019-07-31 06:42] LABS: Albumin 3.7 g/dL (3.5-5.0); Total Bilirubin 0.8 mg/dL (0.2-1.3); Total Protein 6.2 g/dL (6.3-8.2)
[2019-07-31] MEDS: ASPIRIN 325 MG TAB PO SCH (08:28)
[2019-07-31] MEDS: LISINOPRIL 20 MG TAB PO SCH ×2 (08:28→10:40)
[2019-07-31] MEDS: METOPROLOL SUCCINATE (ER) 50 MG TAB.ER.24H PO SCH ×2 (08:28→10:41)
[2019-07-31] MEDS: CHOLECALCIFEROL 1,000 UNIT TAB PO SCH (08:28)
[2019-07-31] MEDS: ATORVASTATIN 40 MG TAB PO SCH (08:28)
[2019-07-31] MEDS: FLUTICASONE 50MCG/SPRAY NASAL 16GM EA NOSTRIL SCH (08:28)
[2019-07-31] MEDS: CLOPIDOGREL 75 MG TAB PO SCH (08:29)
[2019-07-31] MEDS: HEPARIN SODIUM,PORCINE 5,000 UNIT/ML 1 ML VIAL SQ SCH ×2 (08:29→19:58)
[2019-07-31] MEDS: ASCORBIC ACID 500 MG TAB PO SCH (08:29)
[2019-07-31] MEDS: amLODIPine 5 MG TAB PO SCH ×3 (08:29→19:55)
[2019-07-31] MEDS: FAMOTIDINE 20 MG TAB PO SCH (08:29)
--- NOTE | 2019-07-31 09:01 | XR ---
EXAMINATION TYPE: XR chest 2V DATE OF EXAM: 07/31/2019 COMPARISON: Chest x-ray 2 days ago and older studies. HISTORY: Abnormal x-ray, right basilar infiltrate. TECHNIQUE: Frontal and lateral views of the chest are obtained. FINDINGS: There is no new suspicious focal air space opacity, pleural effusion, or pneumothorax seen . Low lung volumes redemonstrated with stable left basilar scarring and/or atelectasis. Right lung ba se appears less suspicious on current study with good visualization of right hemidiaphragm. The cardi ac silhouette size remains enlarged with atherosclerotic ectatic thoracic aorta. Surgical changes lef t femoral head level redemonstrated. Underlying scoliosis again seen. IMPRESSION: No new suspicious acute infiltrate.
--- NOTE | 2019-07-31 10:01 | P.PN ---
Subjective Progress Note Date: 07/31/19 This is an 83-year-old female patient of Dr. Duque. Patient presented with expressive aphasia. Patient's [id number] at bedside. Per family member patient had trouble finding her words on Monday. Patient denies any other neurological symptoms. Patient denies falling. Patient denies weakness to extremities. Patient denies any slurred speech. No facial droop noted per family. Patient does have a past medical history of hypertension in which she was recently admitted and medications adjusted. Per patient's family member patient recently followed up with cardiology services outpatient with 2-D echo was completed and blood pressure was monitored. Additional medical history includes COPD, IBS, ulcers, hysterectomy and previous heart cath. Head CT completed showing age-related atrophic and chronic small vessel ischemic change without acute intracranial process seen at this time. Chest x-ray completed showing mild increased density right lower lobe may reflect developing infiltrate correlate clinically. EKG completed showing normal sinus rhythm left axis deviation voltage criteria for left ventricular hypertrophy. At this time patient is resting comfortably in bed. Patient does appear to have trouble finding her words at times. No other neuro symptoms present. Neurology services have been consulted. Carotid Doppler has been ordered. Patient denies any recent illness. Patient denies chest pain or shortness of breath. Patient denies nausea vomiting or diarrhea. Patient denies any urinary burning or frequency. On 07/31/2019 patient is alert and oriented. Occasional confusion and difficulties finding words. Patient did have MRI completed yesterday showing ev idence of an acute infarct of the left thalamus old infarct or demyelinating disease of the right side of the celia diffuse white matter signal changes around the ventricles could relate to demyelinating disease or chronic small vessel ischemia. Neurology services are following. Patient started on Plavix. At this time patient denies chest pain or shortness of breath. Patient denies nausea vomiting or diarrhea. Patient denies any urinary burning or frequency. Objective - Vital Signs Vital signs: Vital Signs Temp 97.6 F 07/31/19 08:00 Pulse 56 L 07/31/19 08:00 Resp 18 07/31/19 08:00 BP 148/78 07/31/19 08:00 Pulse Ox 93 L 07/31/19 08:00 Intake & Output 07/30/19 07/31/19 07/31/19 18:59 06:59 18:59 Intake Total 900 120 Balance 900 120 Weight 98.9 kg Intake: Oral 900 120 Other: # Voids 1 0 # Bowel Movements 0 - Exam Head normocephalic Neck supple Lungs clear to auscultation bilaterally no wheezing or crackles Heart regular rate and rhythm S1-S2, no rub or gallop Abdomen is soft nontender nondistended positive bowel sounds no hepatosplenomegaly Extremities no edema Neuro alert and orientated to 2. Delayed response difficulty finding words. No facial droop noted. Speech is clear. Strength 5/5 to all extremities. No numbness noted - Labs CBC & Chem 7: 07/31/19 06:02 07/31/19 06:02 Labs: Abnormal Lab Results - Last 24 Hours (Table) 07/31/19 Range/Units 06:02 Chloride 108 H (98-107) mmol/L BUN 25 H (7-17) mg/dL Glucose 125 H (74-99) mg/dL Total Protein 6.2 L (6.3-8.2) g/dL Assessment and Plan Assessment: 1. Excessive aphasia secondary to CVA. Head CT completed showing age-related atrophic and chronic small vessel ischemic change without acute intracranial pro cess seen at this time. EKG completed showing normal sinus rhythm left axis deviation. 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 2-D echo completed showing 60-65%. MRI of the brain completed showing evidence of an acute infarct left thalamus. Old infarct or demyelinating disease of the right side of the celia. Diffuse white matter signal changes around the ventricles could relate to demyelinating disease or chronic small vessel ischemia. MRA of the head without contrast completed showing some narrowing of the distal branch the right middle cerebral artery stenosis is less than 50% and probably not hemodynamically stenosis. Per neurology services Plavix 75 mg has been added for further stroke prevention. 2. Essential hypertension. patient was recently admitted and blood pressure medications were adjusted. Patient has followed up with cardiology services in the past week and 2-D echo was completed. Current blood pressure 136/63. Home medications resumed. 3. History of IBS. Maintained on Bentyl 4. History of peptic ulcer disease 5. Hyperlipidemia. Maintained on statin DVT prophylaxis heparin. GI prophylaxis Pepcid repeat chest x-ray completed showing no new suspicious acute infiltrate I performed an examination of the patient and discussed their management with the Nurse Practitioner. I have reviewed the Nurse Practitioner's notes and agree with the documented findings and plan of care
--- NOTE | 2019-07-31 11:15 | P.PN ---
Subjective Progress Note Date: 07/31/19 Apparently patient's nurse called me last night at 10 PM, the patient is getting worse, with fluctuating neurological status. I was going home, but came over to see the patient. I examined the patient and appeared stable. I reviewed the MRA of the brain with the radiologist who had read the MRA. There appeared a filling defect in the center of the basilar artery. I was concerned about a thrombus in the basilar artery. Spoke to the radiologist, who reviewed the images, and it was concluded that there is no intraluminal thrombus. Patient has an anatomically variant vertebral arteries, which are slightly longer than usual, and the 2 vertebral arteries are going rostrally [id number] before ericka ining to become a basilar artery. I spent 30 minutes from 10 PM to 10:30 PM in evaluating and coordinating care last night. Today I saw the patient, and appears stable. Patient still is somewhat quiet, flat affect, denies any headache. Denies any new neurological symptoms. Objective - Vital Signs Vital signs: Vital Signs Temp 97.6 F 07/31/19 08:00 Pulse 56 L 07/31/19 08:00 Resp 18 07/31/19 08:00 BP 148/78 07/31/19 08:00 Pulse Ox 93 L 07/31/19 08:00 Intake & Output 07/30/19 07/31/19 07/31/19 18:59 06:59 18:59 Intake Total 900 120 Balance 900 120 Weight 98.9 kg Intake: Oral 900 120 Other: # Voids 1 0 # Bowel Movements 0 - Exam On examination patient's mental status, patient is alert, awake, appears to have a flat affect, slow mentation. Speech is clear with no dysarthria. Patient has some difficulty with finding words. Sometimes have to be prompted. Patient was able to name objects like a pen, eyeglasses, button, buttonhole. She could not name knuckles, although has to be prompted. She can repeat very well. On cranial nerve examination, pupils are round and reacting, visual almaguer are full with no neglect. Patient has mild right facial asymmetry. Tongue protrudes to the midline. On muscle strength testing there is mild right pronation with mild drift. The strength however appears normal in the arms and legs. Reflexes are symmetric and plantars are downgoing. No ataxia for [id number]. Sensations are equal with no neglect on double simultaneous stimulation. - Labs CBC & Chem 7: 07/31/19 06:02 07/31/19 06:02 Labs: Abnormal Lab Results - Last 24 Hours (Table) 07/31/19 Range/Units 06:02 Chloride 108 H (98-107) mmol/L BUN 25 H (7-17) mg/dL Glucose 125 H (74-99) mg/dL Total Protein 6.2 L (6.3-8.2) g/dL Assessment and Plan Assessment: * Acute ischemic stroke left basal ganglia/thalamus. * Hypertension Plan: * Patient has somewhat fluctuating neurological symptoms with speech difficulty. We will keep blood pressure above 150 systolic for 24 hours. Hold blood pressure medication, if systolic blood pressure less than 150. * Continue dual antiplatelet medications including Plavix 75 mg and aspirin 81 mg. * PT OT and speech therapy. * Patient's hemoglobin A1c 6.0. Total cholesterol 119, LDL 46 HDL 59 triglycerides 70. Continue statins. * Discussed with patient's family in detail.
[2019-07-31] MEDS: MONTELUKAST 10 MG TAB PO SCH (19:59)
[2019-08-01 06:39] LABS: Basophils # (A) 0.1 k/uL (0-0.2); Basophils % (A) 2 %; Eosinophils # (A) 0.2 k/uL (0-0.7); Eosinophils % (A) 3 %; HCT 40.8 % (34.0-46.0); HGB 13.4 gm/dL (11.4-16.0); Lymphocytes # (A) 1.1 k/uL (1.0-4.8); Lymphocytes % (A) 17 %; MCH 29.6 pg (25.0-35.0); MCHC 32.8 g/dL (31.0-37.0); MCV 90.3 fL (80.0-100.0); Mean Platelet Volume 6.9; Monocytes # (A) 0.4 k/uL (0-1.0); Monocytes % (A) 7 %; Neutrophils # (A) 4.4 k/uL (1.3-7.7); Neutrophils % (A) 70 %; Platelet Count 206 k/uL (150-450); RBC 4.52 m/uL (3.80-5.40); RDW 12.6 % (11.5-15.5); WBC 6.4 k/uL (3.8-10.6)
[2019-08-01 07:03] LABS: ALT 40 U/L (9-52); AST 26 U/L (14-36); African American GFR (CKD) >90 (>60 ml/min/1.73 sqM); Albumin 3.8 g/dL (3.5-5.0); Alkaline Phosphatase 86 U/L (38-126); Anion Gap 7 mmol/L; Blood Urea Nitrogen 18 mg/dL (7-17); Calcium 8.7 mg/dL (8.4-10.2); Carbon Dioxide 28 mmol/L (22-30); Chloride 109 mmol/L (98-107); Glucose 114 mg/dL (74-99); Non-African American GFR(CKD) 86 (>60 ml/min/1.73 sqM); Potassium 3.8 mmol/L (3.5-5.1); Sodium 144 mmol/L (137-145); Total Bilirubin 0.9 mg/dL (0.2-1.3); Total Protein 6.4 g/dL (6.3-8.2)
[2019-08-01] MEDS: HEPARIN SODIUM,PORCINE 5,000 UNIT/ML 1 ML VIAL SQ SCH ×2 (09:01→20:20)
[2019-08-01] MEDS: LISINOPRIL 10 MG TAB PO SCH (09:01)
[2019-08-01] MEDS: FLUTICASONE 50MCG/SPRAY NASAL 16GM EA NOSTRIL SCH (09:01)
[2019-08-01] MEDS: ASPIRIN 81 MG PO SCH (09:02)
[2019-08-01] MEDS: ASCORBIC ACID 500 MG TAB PO SCH (09:02)
[2019-08-01] MEDS: FAMOTIDINE 20 MG TAB PO SCH (09:02)
[2019-08-01] MEDS: CLOPIDOGREL 75 MG TAB PO SCH (09:02)
[2019-08-01] MEDS: CHOLECALCIFEROL 1,000 UNIT TAB PO SCH (09:02)
[2019-08-01] MEDS: METOPROLOL SUCCINATE (ER) 50 MG TAB.ER.24H PO SCH (09:02)
[2019-08-01] MEDS: amLODIPine 5 MG TAB PO SCH ×2 (09:02→20:20)
[2019-08-01] MEDS: ATORVASTATIN 40 MG TAB PO SCH (09:02)
--- NOTE | 2019-08-01 12:04 | P.PN ---
Subjective Progress Note Date: 08/01/19 Patient states that she is getting better. She wants to go home. Denies headache. However on examination, patient appears to be worse, as described below. Patient's son was present, who is seeing her for the first time since she has been hospitalized. He states that patient talked to him something about earlier, but later forgot. Patient is having some memory issues. Patient's blood pressure is 175/95. Objective - Vital Signs Vital signs: Vital Signs Temp 97.9 F 08/01/19 08:00 Pulse 77 08/01/19 11:43 Resp 20 08/01/19 11:43 BP 123/67 08/01/19 11:43 Pulse Ox 96 08/01/19 11:43 Intake & Output 07/31/19 08/01/19 08/01/19 18:59 06:59 18:59 Intake Total 330 530 118 Output Total 300 200 Balance 330 230 -82 Weight 96.2 kg Intake: Oral 330 530 118 Output: Urine 300 200 Other: # Voids 3 1 1 - Exam On examination patient's mental status, patient is alert, awake, appears to have a flat affect, slow mentation. Speech is clear with very mild dysarthria. Patient has more significant naming difficulty, as she could not name objects presented like knuckles, ear lobe. She was able to name eyeglasses, thumb. Patient repeats very well. Her comprehension is intact. She performed worse as compared to yesterday. On cranial nerve examination, pupils are round and reacting, visual almaguer are full with no neglect. Patient has mild right facial asymmetry. Tongue protrudes to the midline. On muscle strength testing there is mild right pronation with no drift. The strength however appears normal in the arms and legs. Reflexes are symmetric and plantars are downgoing. No ataxia for [id number]. Sensations are equal with no neglect on double simultaneous stimulation. Patient states that she does walk to the bathroom and feels stable. - Labs CBC & Chem 7: 08/01/19 06:05 08/01/19 06:05 Labs: Abnormal Lab Results - Last 24 Hours (Table) 08/01/19 Range/Units 06:05 Chloride 109 H (98-107) mmol/L BUN 18 H (7-17) mg/dL Glucose 114 H (74-99) mg/dL Assessment and Plan Assessment: * Acute ischemic stroke left basal ganglia/thalamus. Patient has mild expressive aphasia, memory disturbance and right facial brachial weakness related to CVA. * Hypertension Plan: * Patient's symptoms appear slightly worse. At this time, we can can continue her blood pressure medications, tried to optimize her blood pressure gradually. * If her symptoms gets any worse, then would repeat computed tomography scan of the head. * Continue dual antiplatelet medications including Plavix 75 mg and aspirin 81 mg. * PT OT and speech therapy. * Patient's hemoglobin A1c 6.0. Total cholesterol 119, LDL 46 HDL 59 triglycerides 70. Continue statins. * Discussed with patient's son in detail.
--- NOTE | 2019-08-01 13:17 | P.PN ---
Subjective Progress Note Date: 08/01/19 This is an 83-year-old female patient of Dr. Duque. Patient presented with expressive aphasia. Patient's [id number] at bedside. Per family member patient had trouble finding her words on Monday. Patient denies any other neurological symptoms. Patient denies falling. Patient denies weakness to extremities. Patient denies any slurred speech. No facial droop noted per family. Patient does have a past medical history of hypertension in which she was recently admitted and medications adjusted. Per patient's family member patient recently followed up with cardiology services outpatient with 2-D echo was completed and blood pressure was monitored. Additional medical history includes COPD, IBS, ulcers, hysterectomy and previous heart cath. Head CT completed showing age-related atrophic and chronic small vessel ischemic change without acute intracranial process seen at this time. Chest x-ray completed showing mild increased density right lower lobe may reflect developing infiltrate correlate clinically. EKG completed showing normal sinus rhythm left axis deviation voltage criteria for left ventricular hypertrophy. At this time patient is resting comfortably in bed. Patient does appear to have trouble finding her words at times. No other neuro symptoms present. Neurology services have been consulted. Carotid Doppler has been ordered. Patient denies any recent illness. Patient denies chest pain or shortness of breath. Patient denies nausea vomiting or diarrhea. Patient denies any urinary burning or frequency. On 07/31/2019 patient is alert and oriented. Occasional confusion and difficulties finding words. Patient did have MRI completed yesterday showing ev idence of an acute infarct of the left thalamus old infarct or demyelinating disease of the right side of the celia diffuse white matter signal changes around the ventricles could relate to demyelinating disease or chronic small vessel ischemia. Neurology services are following. Patient started on Plavix. At this time patient denies chest pain or shortness of breath. Patient denies nausea vomiting or diarrhea. Patient denies any urinary burning or frequency. On 08/01/2019 patient's alert and oriented intermittent confusion at times and scrambled words. Per neuro services would like to keep patient an additional 24 hours for monitoring. Patient to resume all blood pressure meds per neurology. Patient denies chest pain or shortness of breath. Patient denies nausea vomiting or diarrhea. Patient denies urinary burning or frequency Objective - Vital Signs Vital signs: Vital Signs Temp 97.9 F 08/01/19 08:00 Pulse 62 08/01/19 11:43 Resp 20 08/01/19 11:43 BP 142/94 08/01/19 11:43 Pulse Ox 92 L 08/01/19 11:43 Intake & Output 07/31/19 08/01/19 08/01/19 18:59 06:59 18:59 Intake Total 330 530 118 Output Total 300 200 Balance 330 230 -82 Weight 96.2 kg Intake: Oral 330 530 118 Output: Urine 300 200 Other: # Voids 3 1 1 - Exam Head normocephalic Neck supple Lungs clear to auscultation bilaterally no wheezing or crackles Heart regular rate and rhythm S1-S2, no rub or gallop Abdomen is soft nontender nondistended positive bowel sounds no hepatosplenomegaly Extremities no edema Neuro alert and orientated to 2. Delayed response difficulty finding words. No facial droop noted. Speech is clear. Strength 5/5 to all extremities. No numbness noted - Labs CBC & Chem 7: 08/01/19 06:05 08/01/19 06:05 Labs: Abnormal Lab Results - Last 24 Hours (Table) 08/01/19 Range/Units 06:05 Chloride 109 H (98-107) mmol/L BUN 18 H (7-17) mg/dL Glucose 114 H (74-99) mg/dL Assessment and Plan Assessment: 1. Excessive aphasia secondary to CVA. Head CT completed showing age-related atrophic and chronic small vessel ischemic change without acute intracranial process seen at this time. EKG completed showing normal sinus rhythm left axis deviation. 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 2-D echo completed showing 60-65%. MRI of the brain completed showing evidence of an acute infarct left thalamus. Old infarct or demyelinating disease of the right side of the celia. Diffuse white matter signal changes around the ventricles could relate to demyelinating disease or chronic small vessel ischemia. MRA of the head without contrast completed showing some narrowing of the distal branch the right middle cerebral artery stenosis is less than 50% and probably not hemodynamically stenosis. Per neurology services Plavix 75 mg has been added for further stroke prevention. 2. Essential hypertension. patient was recently admitted and blood pressure medications were adjusted. Patient has followed up with cardiology services in the past week and 2-D echo was completed. Current blood pressure 136/63. Home medications resumed. 3. History of IBS. Maintained on Bentyl 4. History of peptic ulcer disease 5. Hyperlipidemia. Maintained on statin DVT prophylaxis heparin. GI prophylaxis Pepcid repeat chest x-ray completed showing no new suspicious acute infiltrate Per neurology services continue to monitor for additional 24 hours I performed an examination of the patient and discussed their management with the Nurse Practitioner. I have reviewed the Nurse Practitioner's notes and agr ee with the documented findings and plan of care
[2019-08-01] MEDS: MONTELUKAST 10 MG TAB PO SCH (20:20)
[2019-08-02 04:28] VITALS: RESP 16
[2019-08-02 06:59] LABS: Basophils # (A) 0.1 k/uL (0-0.2); Basophils % (A) 1 %; Eosinophils # (A) 0.2 k/uL (0-0.7); Eosinophils % (A) 3 %; HCT 40.1 % (34.0-46.0); Lymphocytes # (A) 1.2 k/uL (1.0-4.8); Lymphocytes % (A) 16 %; MCH 29.3 pg (25.0-35.0); MCHC 32.5 g/dL (31.0-37.0); Mean Platelet Volume 6.5; Monocytes # (A) 0.4 k/uL (0-1.0); Monocytes % (A) 5 %; Neutrophils # (A) 5.6 k/uL (1.3-7.7); Neutrophils % (A) 75 %; Platelet Count 193 k/uL (150-450); RBC 4.46 m/uL (3.80-5.40); RDW 12.7 % (11.5-15.5); WBC 7.4 k/uL (3.8-10.6)
[2019-08-02 07:08] LABS: ALT 32 U/L (9-52); AST 26 U/L (14-36); African American GFR (CKD) >90 (>60 ml/min/1.73 sqM); Albumin 3.7 g/dL (3.5-5.0); Alkaline Phosphatase 79 U/L (38-126); Anion Gap 6 mmol/L; Blood Urea Nitrogen 15 mg/dL (7-17); Calcium 8.6 mg/dL (8.4-10.2); Carbon Dioxide 27 mmol/L (22-30); Chloride 107 mmol/L (98-107); Glucose 108 mg/dL (74-99); Non-African American GFR(CKD) 86 (>60 ml/min/1.73 sqM); Potassium 3.9 mmol/L (3.5-5.1); Sodium 140 mmol/L (137-145); Total Protein 6.2 g/dL (6.3-8.2)
[2019-08-02] MEDS: ATORVASTATIN 40 MG TAB PO SCH (08:54)
[2019-08-02] MEDS: LISINOPRIL 10 MG TAB PO SCH (08:54)
[2019-08-02] MEDS: METOPROLOL SUCCINATE (ER) 50 MG TAB.ER.24H PO SCH (08:54)
[2019-08-02] MEDS: amLODIPine 5 MG TAB PO SCH (08:54)
[2019-08-02] MEDS: FAMOTIDINE 20 MG TAB PO SCH (08:54)
[2019-08-02] MEDS: CHOLECALCIFEROL 1,000 UNIT TAB PO SCH (08:54)
[2019-08-02] MEDS: ASCORBIC ACID 500 MG TAB PO SCH (08:54)
[2019-08-02] MEDS: CLOPIDOGREL 75 MG TAB PO SCH (08:54)
[2019-08-02] MEDS: ASPIRIN 81 MG PO SCH (08:54)
[2019-08-02] MEDS: HEPARIN SODIUM,PORCINE 5,000 UNIT/ML 1 ML VIAL SQ SCH (08:54)
[2019-08-02] MEDS: FLUTICASONE 50MCG/SPRAY NASAL 16GM EA NOSTRIL SCH (08:55)
[2019-08-02 13:18] VITALS: PULSE 65
[2019-08-02 13:35] VITALS: BP 147/88; TEMP 98.2
--- NOTE | 2019-08-02 14:29 | P.DS ---
Providers Date of admission: 07/29/19 19:57 Expected date of discharge: 08/02/19 Attending physician: Magno Mills Consults: 07/29/19 19:58 Consult Physician Routine Consulting Provider: Carolyn Ceja Consult Reason/Comments: CVA Do you want consulting provider notified?: Yes Primary care physician: Margaux Duque Hospital Course: Discharge diagnosis 1. Excessive aphasia secondary to CVA. Head CT completed showing age-related atrophic and chronic small vessel ischemic change without acute intracranial process seen at this time. EKG completed showing normal sinus rhythm left axis deviation. 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 2-D echo completed showing 60-65%. MRI of the brain completed showing evidence of an acute infarct left thalamus. Old infarct or demyelinating disease of the right side of the celia. Diffuse white matter signal changes around the ventricles could relate to demyelinating disease or chronic small vessel ischemia. MRA of the head without contrast completed showing some narrowing of the distal branch the right middle cerebral artery stenosis is less than 50% and probably not hemodynamically stenosis. Per neurology services Plavix 75 mg has been added for further stroke prevention. Patient has been cleared for discharge from neurology standpoint patient will be DC'd on Plavix and aspirin. Per nephrology patient to follow-up with local neurologist within a week and if unable to follow-up with Dr. ceja [place] related 2. Essential hypertension. patient was recently admitted and blood pressure medications were adjusted. Patient has followed up with cardiology services in the past week and 2-D echo was completed. Current blood pressure 136/63. Home medications resumed. Lisinopril decreased per neurology services 3. History of IBS. Maintained on Bentyl 4. History of peptic ulcer disease 5. Hyperlipidemia. Maintained on statin Hospital course This is an 83-year-old female patient of Dr. Duque. Patient presented with expressive aphasia. Patient's [id number] at bedside. Per family member patient had trouble finding her words on Monday. Patient denies any other neurological symptoms. Patient denies falling. Patient denies weakness to extremities. Patient denies any slurred speech. No facial droop noted per family. Patient does have a past medical history of hypertension in which she was recently admitted and medications adjusted. Per patient's family member patient recently followed up with cardiology services outpatient with 2-D echo was completed and blood pressure was monitored. Additional medical history includes COPD, IBS, ulcers, hysterectomy and previous heart cath. Head CT completed showing age-related atrophic and chronic small vessel ischemic change without acute intracranial process seen at this time. Chest x-ray completed showing mild increased density right lower lobe may reflect developing infiltrate correlate clinically. EKG completed showing normal sinus rhythm left axis deviation voltage criteria for left ventricular hypertrophy. At this time patient is resting comfortably in bed. Patient does appear to have trouble finding her words at times. No other neuro symptoms present. Neurology services have been consulted. Carotid Doppler has been ordered. Patient denies any recent illness. Patient denies chest pain or shortness of breath. Patient denies nausea vomiting or diarrhea. Patient denies any urinary burning or frequency. On 07/31/2019 patient is alert and oriented. Occasional confusion and difficulties finding words. Patient did have MRI completed yesterday showing evidence of an acute infarct of the left thalamus old infarct or demyelinating disease of the right side of the celia diffuse white matter signal changes around the ventricles could relate to demyelinating disease or chronic small vessel ischemia. Neurology services are following. Patient started on Plavix. At this time patient denies chest pain or shortness of breath. Patient denies nausea vomiting or diarrhea. Patient denies any urinary burning or frequency. On 08/01/2019 patient's alert and oriented intermittent confusion at times and scrambled words. Per neuro services would like to keep patient an additional 24 hours for monitoring. Patient to resume all blood pressure meds per neurology. Patient denies chest pain or shortness of breath. Patient denies nausea vomiting or diarrhea. Patient denies urinary burning or frequency On 08/02/2019 patient's alert and oriented 3. Patient is eager to be discharged home. No new neuro symptoms present. Per neurology services patient has been cleared for discharge. Patient will be DC'd on Plavix and aspirin. per neurology services patient to follow-up with local neurologist within a week and if unable she is to follow-up with Dr. Ceja for [place]. I performed an examination of the patient and discussed their management with the Nurse Practitioner. I have reviewed the Nurse Practitioner's notes and agree with the documented findings and plan of care Patient Condition at Discharge: Stable Plan - Discharge Summary New Discharge Prescriptions: New Aspirin 81 mg PO DAILY 30 Days #30 chew Clopidogrel [Plavix] 75 mg PO DAILY 30 Days #30 tab Lisinopril [Zestril] 10 mg PO DAILY 30 Days #30 tab Continue Montelukast [Singulair] 10 mg PO HS Fluticasone Propionate 1 spray EA NOSTRIL DAILY Oxybutynin Chloride [Ditropan XL] 10 mg PO HS Dicyclomine [Bentyl] 10 mg PO QID PRN PRN Reason: Spasms Cholecalciferol [Vitamin D3 (25 Mcg = 1000 Iu)] 1,000 unit PO DAILY Calcium/Magnesium/Zinc [Zbmclsu-Mrhncdfqp-Onem Tablet] 1 tab PO DAILY Psyllium Husk (with Sugar) [Metamucil Powder] 1 tbsp PO HS Multivit-Min/FA/Lycopen/Lutein [Centrum Silver Tablet] 1 tab PO DAILY Ascorbic Acid [Vitamin C] 1,000 mg PO DAILY Metoprolol Succinate (ER) [Toprol XL] 50 mg PO DAILY Biotin Forte 1 tab PO DAILY Atorvastatin [Lipitor] 40 mg PO DAILY 30 Days #30 tab amLODIPine [Norvasc] 5 mg PO BID 30 Days #30 tab Discontinued Lisinopril [Zestril] 20 mg PO DAILY Discharge Medication List Fluticasone Propionate 1 spray EA NOSTRIL DAILY 10/23/14 [History] Montelukast [Singulair] 10 mg PO HS 10/23/14 [History] Oxybutynin Chloride [Ditropan XL] 10 mg PO HS 10/23/14 [History] Calcium/Magnesium/Zinc [Vsipbem-Lirbhleuj-Vvwp Tablet] 1 tab PO DAILY 11/16/16 [History] Cholecalciferol [Vitamin D3 (25 Mcg = 1000 Iu)] 1,000 unit PO DAILY 11/16/16 [History] Dicyclomine [Bentyl] 10 mg PO QID PRN 11/16/16 [History] Psyllium Husk (with Sugar) [Metamucil Powder] 1 tbsp PO HS 04/04/17 [History] Ascorbic Acid [Vitamin C] 1,000 mg PO DAILY 07/16/19 [History] Biotin Forte 1 tab PO DAILY 07/16/19 [History] Metoprolol Succinate (ER) [Toprol XL] 50 mg PO DAILY 07/16/19 [History] Multivit-Min/FA/Lycopen/Lutein [Centrum Silver Tablet] 1 tab PO DAILY 07/16/19 [History] Atorvastatin [Lipitor] 40 mg PO DAILY 30 Days #30 tab 07/17/19 [Rx] amLODIPine [Norvasc] 5 mg PO BID 30 Days #30 tab 07/17/19 [Rx] Aspirin 81 mg PO DAILY 30 Days #30 chew 08/02/19 [Rx] Clopidogrel [Plavix] 75 mg PO DAILY 30 Days #30 tab 08/02/19 [Rx] Lisinopril [Zestril] 10 mg PO DAILY 30 Days #30 tab 08/02/19 [Rx] Follow up Appointment(s)/Referral(s): Margaux Duque MD [Primary Care Provider] - 08/06/19 8:30 am Kitty De MD [Medical Doctor] - 1 Week (Office will call with a follow up appointment. ) Patient Instructions/Handouts: Heart Healthy Diet (DC), Ischemic Stroke (DC) Activity/Diet/Wound Care/Special Instructions: patient to follow-up with local neurologist within a week if unable to follow-up with Dr. Ceja [place] Activity as tolerated Diet heart healthy Discharge Disposition: HOME SELF-CARE
--- NOTE | 2019-08-02 16:04 | P.PN ---
Subjective Progress Note Date: 08/02/19 Patient states that she is getting better. Speech therapist was also present today, including patient's 2 of the sons. Patient strongly wants to go home. Denies headache. However on examination, patient appears to be stable as compared to yesterday. Still with word finding problem. Patient is afebrile. No signs of infection. WBC count normal. No signs of meningeal process. Reviewed the MRI again. No evidence of HSV encephalitis. MRI is consistent with an acute stroke. Patient's blood pressure is 175/95. Objective - Vital Signs Vital signs: Vital Signs Temp 98.2 F 08/02/19 12:00 Pulse 65 08/02/19 12:00 Resp 16 08/02/19 12:00 BP 147/88 08/02/19 12:00 Pulse Ox 95 08/02/19 12:00 Intake & Output 08/01/19 08/02/19 08/02/19 18:59 06:59 18:59 Intake Total 358 480 Output Total 200 750 400 Balance 158 -750 80 Weight 98.7 kg Intake: Oral 358 480 Output: Urine 200 750 400 Other: # Voids 1 1 1 - Exam On examination patient is alert, awake, appears to have a flat affect, slow mentation. Speech is clear with very mild dysarthria. Patient has more significant naming difficulty, as she could not name objects presented like knuckles, ear lobe. She was able to name eyeglasses, thumb. Patient able to name some objects after prompting. Patient repeats very well. Her comprehension is intact. She is stable as compared to yesterday. On cranial nerve examination, pupils are round and reacting, visual almaguer are f ull with no neglect. Patient has mild right facial asymmetry. Tongue protrudes to the midline. On muscle strength testing there is mild right pronation with no drift. The strength however appears normal in the arms and legs. Reflexes are symmetric and plantars are downgoing. No ataxia for [id number]. Sensations are equal with no neglect on double simultaneous stimulation. Patient states that she does walk to the bathroom and feels stable. - Labs CBC & Chem 7: 08/02/19 06:01 08/02/19 06:01 Labs: Abnormal Lab Results - Last 24 Hours (Table) 08/02/19 Range/Units 06:01 Glucose 108 H (74-99) mg/dL Total Protein 6.2 L (6.3-8.2) g/dL Assessment and Plan Assessment: * Acute ischemic stroke left basal ganglia/thalamus. Patient has mild expressive aphasia, memory disturbance and right facial brachial weakness related to CVA. * Hypertension Plan: * Patient's neurological symptoms are stable. Patient is very desperate to go home. * Continue dual antiplatelet medications including Plavix 75 mg and aspirin 81 mg. * PT OT and speech therapy. * Patient's hemoglobin A1c 6.0. Total cholesterol 119, LDL 46 HDL 59 triglycerides 70. Continue statins. * Patient will be discharged. * Patient was recommended to see a local neurologist within 7 days after discharge. * Discussed with patient's son in detail.
== END 2019-08-02 15:10 | disposition home or self-care (01) | DRG 65 ==
LOC: EC 18:35 → 3SCARD 19:57
PROVIDERS: ADMIT Internal Medicine; ATTEND Internal Medicine
DX: I63.9 Cerebral infarction, unspecified (principal); G37.9 Demyelinating disease of central nervous system, unspecified; E78.5 Hyperlipidemia, unspecified; R47.01 Aphasia; R29.701 NIHSS score 1; I10 Essential (primary) hypertension; I35.8 Other nonrheumatic aortic valve disorders; J44.9 Chronic obstructive pulmonary disease, unspecified; R29.810 Facial weakness; Z79.82 Long term (current) use of aspirin; Z79.899 Other long term (current) drug therapy; Z82.49 Family history of ischemic heart disease and other diseases of the circulatory system; Z83.3 Family history of diabetes mellitus; Z87.11 Personal history of peptic ulcer disease; Z90.710 Acquired absence of both cervix and uterus; Z96.651 Presence of right artificial knee joint; Z88.5 Allergy status to narcotic agent; Z88.0 Allergy status to penicillin; Z88.2 Allergy status to sulfonamides; Z88.7 Allergy status to serum and vaccine; Z91.012 Allergy to eggs; Z91.011 Allergy to milk products; K58.9 Irritable bowel syndrome, unspecified
CPT/HCPCS: 36415; 70450; 70544; 70551; 71046; 80053; 80061; 83036; 84484; 85025; 85610; 85730; 93005; 93306; 93880; 94760; 96360; 99285